=== PATIENT | male | born 1985 | race Caucasian/White ===

== ENCOUNTER → 2017-08-06 08:37 | Outpatient (CLI) | payer OTHER, MEDICAID, SELFPAY ==
[2017-08-06 09:35] LABS: Hemoglobin A1C% w Est Avg Glu 5.3 % (4.0-6.0)
[2017-08-06 10:01] LABS: Hematocrit 47.2 % (41-53); Hemoglobin 16.7 g/dL (13.5-17.5); Mean Corpuscular HGB Conc 35.4 % (30-36); Mean Corpuscular Volume 90.5 fL (80-100); Platelet Count 151 X10^3/uL (150-400); Red Blood Cell Count 5.21 X10^6/uL (4.5-5.9); Red Cell Distribution Width 12.4 % (11.6-14.8); White Blood Cell Count 5.9 X10^3/uL (4.5-11.0)
[2017-08-06 10:04] LABS: BUN Creatinine Ratio 19.1 (6-22); Blood Urea Nitrogen 21 mg/dL (9-20); Calcium 9.9 mg/dL (8.4-10.2); Carbon Dioxide 25 mmol/L (22-32); Chloride 104 mmol/L (98-107); Estimated Glomerular Filt Rate > 60.0 mL/min (>60); Glucose 90 mg/dL (70-100); HEMOLYSIS < 15 (0-50); Potassium 4.8 mmol/L (3.4-5.1); Sodium 142 mmol/L (137-145)
[2017-08-06 10:18] LABS: Vitamin D 25 Hydroxy (D3) 96.3 ng/mL (30.0-100.0)
== END ==
PROVIDERS: PCP Family Medicine; Visit Provider Registered Nurse
DX: F84.0 Autistic disorder (principal); F42.9 Obsessive-compulsive disorder, unspecified; F95.2 Tourette's disorder; R73.9 Hyperglycemia, unspecified
CPT/HCPCS: 36415; 80048; 82306; 83036; 85027

== ENCOUNTER → 2018-10-10 15:57 | Outpatient (CLI) | payer OTHER, MEDICAID, SELFPAY ==
[2018-10-10 16:20] LABS: Appearance Urine UA CLEAR; Bilirubin Urine UA NEGATIVE (NEGATIVE); Color Urine UA YELLOW; Glucose Urine UA NEGATIVE (Negative); Ketones Urine UA NEGATIVE (NEGATIVE); Leukocyte Esterase Urine UA 1+ (NEGATIVE); Nitrite Urine UA NEGATIVE (Negative); Occult Blood Urine UA TRACE-LYSED (Negative); Protein Urine UA NEGATIVE (Negative); Urobilinogen Urine UA 0.2 E.U./dL (0.2)
[2018-10-10 16:29] LABS: Bacteria Urine None Seen; RBC Urine None Seen (0-5/HPF)
[2018-10-10 16:30] LABS: Culture Indicated Urine Cult Not Indicated; WBC Urine 1-5/HPF (0-5/HPF)
== END ==
PROVIDERS: PCP Family Medicine; Visit Provider Family Medicine
DX: R31.9 Hematuria, unspecified (principal)
CPT/HCPCS: 81003; 81015

== ENCOUNTER → 2019-04-28 07:21 | Outpatient (CLI) | payer OTHER, MEDICAID, SELFPAY ==
[2019-04-28 08:12] LABS: Add Manual Diff / Slide Review NO; Basophils Absolute Auto 0 /uL (0-100); Basophils Percent Auto 0.8 % (0-2); Eosinophils Absolute Auto 100 /uL (0-450); Eosinophils Percent Auto 1.7 % (2-4); Hematocrit 43.7 % (41-53); Hemoglobin 15.6 g/dL (13.5-17.5); Lymphocytes Absolute Auto 2000 /uL (1100-4500); Lymphocytes Percent Auto 36.9 % (25-40); Mean Corpuscular HGB Conc 35.8 % (30-36); Mean Corpuscular Hemoglobin 33.4 PG (26-34); Mean Corpuscular Volume 93.3 fL (80-100); Monocytes Absolute Auto 600 /uL (0-900); Monocytes Percent Auto 10.4 % (3-14); Neutrophils Absolute Auto 2700 /uL (1500-7000); Neutrophils Percent Auto 50.2 % (50-75); Platelet Count 170 X10^3/uL (150-400); Red Blood Cell Count 4.68 X10^6/uL (4.5-5.9); Red Cell Distribution Width 12.5 % (11.6-14.8); White Blood Cell Count 5.5 X10^3/uL (4.5-11.0)
[2019-04-28 08:25] LABS: Alanine Aminotransferase 38 IU/L (<50); Albumin 4.6 g/dL (3.5-5.0); Albumin Globulin Ratio 1.5 (1.0-2.8); Alkaline Phosphatase 62 U/L (38-126); Aspartate Aminotransferase 34 IU/L (17-59); Bilirubin Total 0.7 mg/dL (0.2-1.3); Blood Urea Nitrogen 24 mg/dL (9-20); Calcium 9.8 mg/dL (8.4-10.2); Carbon Dioxide 22 mmol/L (22-32); Chloride 109 mmol/L (98-107); Estimated Glomerular Filt Rate > 60.0 mL/min (>60); Glucose 91 mg/dL (70-100); HEMOLYSIS < 15 (0-50); Potassium 4.2 mmol/L (3.4-5.1); Sodium 142 mmol/L (137-145); Total Protein 7.6 g/dL (6.3-8.2)
== END ==
PROVIDERS: PCP Family Medicine; Referring Provider Family Medicine; Visit Provider Family Medicine
DX: R63.4 Abnormal weight loss (principal)
CPT/HCPCS: 36415; 80053; 84443; 85025

== ENCOUNTER → 2019-05-11 15:27 | Outpatient (CLI) | payer OTHER, MEDICAID, SELFPAY ==
[2019-05-11 17:46] LABS: Appearance Urine UA CLEAR; Bilirubin Urine UA NEGATIVE (NEGATIVE); Color Urine UA YELLOW; Glucose Urine UA NEGATIVE (Negative); Ketones Urine UA NEGATIVE (NEGATIVE); Leukocyte Esterase Urine UA NEGATIVE (NEGATIVE); Nitrite Urine UA NEGATIVE (Negative); Occult Blood Urine UA NEGATIVE (Negative); Protein Urine UA NEGATIVE (Negative); Urobilinogen Urine UA 0.2 E.U./dL (0.2); pH Urine UA 5.5 (4.5-8.0)
== END ==
PROVIDERS: PCP Family Medicine; Referring Provider Family Medicine; Visit Provider Family Medicine
DX: R31.9 Hematuria, unspecified (principal)
CPT/HCPCS: 81003

== ENCOUNTER → 2019-06-20 12:46 | Outpatient (CLI) | payer OTHER, MEDICAID, SELFPAY ==
--- NOTE | 2019-06-20 13:06 | DI.CT.S_ITS ---
PROCEDURE: CT ABDOMEN PELVIS WO/W CON INDICATIONS: 30 LB WEIGHT LOSS HEMATURIA TECHNIQUE: Optional 5 mm thick noncontrast images acquired from the diaphragm to the symphysis pubis. After the administration of intravenous contrast, 5 mm thick images acquired from the diaphragm to the symphysis pubis after a 10-minute delay. 2 mm thick coronal and sagittal reformats were then performed of the kidneys and ureters. For radiation dose reduction, the following was used: automated exposure control, adjustment of mA and/or kV according to patient size. COMPARISON: None. FINDINGS: Image quality: Excellent. Lung bases: Respiratory motion. Lung bases are clear. Heart size is normal. Urinary system: Both kidneys are normal in size, without hydronephrosis or nephrolithiasis on pre-contrast images. No perinephric fat stranding. There is normal bilateral renal enhancement. A few cortical hypodensities in left kidney which are too small to further characterize. No solid mass. Renal calyces appear normal in morphology when filled with contrast. Opacified portions of both ureters demonstrate normal caliber. No urinary tract filling defect identified. Bladder wall thickness is normal. No calcified bladder stones. Other solid organs: Liver is normal in size. Hepatic steatosis. Gallbladder is unremarkable. Biliary system is non dilated. Pancreas enhances normally. Spleen is normal in size and enhancement. No adrenal nodules. Peritoneum and bowel: Bowel loops demonstrate normal wall thickness and caliber. No free fluid or air. Appendix is normal in caliber. Increased density in the appendix and cecum which may represent medication tablets or prior oral contrast. Nodes and vessels: No retroperitoneal or mesenteric adenopathy by size criteria. Aorta and inferior vena cava are normal in size. Abdominal wall: No ventral hernias. Pelvis: No pathologic free pelvic fluid. No inguinal hernias or adenopathy. Bones: No suspicious bony lesions. No vertebral body compression fractures. IMPRESSION: 1. No solid renal mass. 2. No upper urinary tract filling defect. No kidney stones. 3. No adenopathy. Dictated by: Héctor Hayes M.D. on 06/20/2019 at 13:22 Approved by: Héctor Hayes M.D. on 06/20/2019 at 13:30
== END ==
PROVIDERS: PCP Family Medicine; Referring Provider Family Medicine; Visit Provider Family Medicine
DX: R31.9 Hematuria, unspecified (principal); R63.4 Abnormal weight loss; K76.0 Fatty (change of) liver, not elsewhere classified
CPT/HCPCS: 74178; Q9967

== ENCOUNTER → 2020-01-17 14:33 | Outpatient (CLI) | payer OTHER, MEDICAID, SELFPAY ==
--- NOTE | 2020-01-17 | DI.CT.S_ITS ---
PROCEDURE: CT SINUS SCREEN WO CON INDICATIONS: chronic sinusitis,unspecified TECHNIQUE: Noncontrast 3.0 mm axial images acquired from the frontal sinuses to the mid-sella, with coronal and sagittal reformats. For radiation dose reduction, the following was used: automated exposure control, adjustment of mA and/or kV according to patient size. COMPARISON: None. FINDINGS: Image quality: Excellent. Maxillary Sinuses: No bony remodeling or destruction. There is a small left maxillary sinus retention cyst. Right maxillary sinus is clear.. Ethmoid Air Cells: No bony remodeling or destruction. Sinuses are clear. Sphenoid Sinuses: No bony remodeling or destruction. Sinuses are clear. Frontal Sinuses: No bony remodeling or destruction. Sinuses are clear. Ostiomeatal Complexes: Ostiomeatal complexes are patent. No Gera cells. Miscellaneous: Visualized intra-orbital contents are normal. No hema bullosa or paradoxical turbinate curvature. Mild rightward deviation of the posterior nasal septum, and mild leftward deviation of the anterior nasal septum. IMPRESSION: 1. Mild left maxillary sinus mucosal disease. 2. Mild nasal septal deviation as described above. Dictated by: Corby Hopper M.D. on 01/17/2020 at 15:17 Approved by: Corby Hpoper M.D. on 01/17/2020 at 15:18
== END ==
PROVIDERS: PCP Family Medicine; Referring Provider Registered Nurse; Visit Provider Registered Nurse
DX: J32.0 Chronic maxillary sinusitis (principal); J34.2 Deviated nasal septum
CPT/HCPCS: 70486

== ENCOUNTER → 2020-03-20 12:27 | Outpatient (CLI) | payer OTHER, MEDICAID, SELFPAY ==
[2020-03-20 13:12] LABS: Add Manual Diff / Slide Review NO; Basophils Absolute Auto 100 /uL (0-100); Basophils Percent Auto 0.9 % (0-2); Eosinophils Absolute Auto 100 /uL (0-450); Eosinophils Percent Auto 1.3 % (2-4); Hematocrit 46.6 % (41-53); Hemoglobin 16.2 g/dL (13.5-17.5); Lymphocytes Absolute Auto 1600 /uL (1100-4500); Lymphocytes Percent Auto 28.1 % (25-40); Mean Corpuscular HGB Conc 34.7 % (30-36); Mean Corpuscular Hemoglobin 33.6 PG (26-34); Monocytes Absolute Auto 700 /uL (0-900); Monocytes Percent Auto 12.4 % (3-14); Neutrophils Absolute Auto 3300 /uL (1500-7000); Neutrophils Percent Auto 57.3 % (50-75); Platelet Count 193 X10^3/uL (150-400); Red Blood Cell Count 4.81 X10^6/uL (4.5-5.9); Red Cell Distribution Width 12.6 % (11.6-14.8); White Blood Cell Count 5.8 X10^3/uL (4.5-11.0)
[2020-03-20 13:28] LABS: Alanine Aminotransferase 29 IU/L (<50); Albumin Globulin Ratio 1.7 (1.0-2.8); Alkaline Phosphatase 53 U/L (38-126); Aspartate Aminotransferase 31 IU/L (17-59); BUN Creatinine Ratio 28.4 (6-22); Bilirubin Total 0.9 mg/dL (0.2-1.3); Blood Urea Nitrogen 29 mg/dL (9-20); Calcium 10.1 mg/dL (8.4-10.2); Carbon Dioxide 25 mmol/L (22-32); Chloride 109 mmol/L (98-107); Estimated Glomerular Filt Rate > 60.0 mL/min (>60); Globulin 2.9 g/dL (1.7-4.1); Glucose 67 mg/dL (70-100); HEMOLYSIS 18 (0-50); Potassium 4.3 mmol/L (3.4-5.1); Sodium 144 mmol/L (137-145); Total Protein 7.9 g/dL (6.3-8.2)
[2020-03-20 15:11] LABS: Amylase 54 U/L (30-110); Lipase 163 U/L (23-300)
== END ==
PROVIDERS: PCP Family Medicine; Referring Provider Family Medicine; Visit Provider Family Medicine
DX: R10.11 Right upper quadrant pain (principal)
CPT/HCPCS: 36415; 80053; 82150; 83690; 85025

== ENCOUNTER → 2020-03-22 10:45 | Outpatient (CLI) | payer OTHER, MEDICAID, SELFPAY ==
--- NOTE | 2020-03-22 10:46 | DI.US.S_ITS ---
PROCEDURE: US ABDOMEN COMPLETE INDICATIONS: RIGHT UPPER QUADRANT PAIN TECHNIQUE: Real-time scanning was performed of the abdominal and retroperitoneal organs, with image documentation. COMPARISON: [facility], CT, CT ABDOMEN PELVIS WO/W CON, 06/20/2019, 12:50. FINDINGS: Liver: The liver demonstrates normal size. The liver demonstrates generalized mildly increased echogenicity. This decreases ultrasound sensitivity for detection of hepatic masses. Gallbladder: No findings of gallstones or sludge are seen. The gallbladder wall is not thickened, measuring 3 mm or less. No specific pericholecystic fluid is seen. The sonographic Braun sign is negative. Biliary ducts: Intrahepatic bile ducts are non-dilated. Extrahepatic bile duct caliber measures 3 mm. Normal is 6-7 mm or less in diameter, or 10 mm or less post-cholecystectomy. Pancreas: Visualized portions of the pancreas are sonographically normal. Spleen: Spleen is normal in size and homogeneous in echotexture. Kidneys: Kidneys are normal in size and echotexture. Right kidney measures 9.6 cm long; left kidney measures 10.9 cm long. No hydronephrosis or nephrolithiasis. No solid masses. Aorta: Visualized aorta is normal in caliber at less than 3 cm. Iliacs: Proximal common iliac arteries are normal in caliber at less than 2.5 cm. IVC: Intrahepatic inferior vena cava is patent. Miscellaneous: No free abdominal fluid. IMPRESSION: The gallbladder demonstrates a normal sonographic appearance. No biliary dilatation is seen. The liver demonstrates increased echogenicity. This finding is nonspecific, yet it is most commonly attributed to fatty infiltration. Dictated by: Valeriano Farooq M.D. on 03/22/2020 at 11:14 Approved by: Valeriano Farooq M.D. on 03/22/2020 at 11:15
== END ==
PROVIDERS: PCP Family Medicine; Referring Provider Family Medicine; Visit Provider Family Medicine
DX: R10.11 Right upper quadrant pain (principal)
CPT/HCPCS: 76700

== ENCOUNTER 2020-06-28 10:44 | Observation (INO) | payer OTHER, MEDICAID, SELFPAY ==
[2020-06-28] VITALS (16 sets, daily range): BP systolic 93–142; BP diastolic 57–88; PULSE 62–102; RESP 18–23; TEMP 36.4–37.3; O2SAT 93–100; BMI 24.3
--- NOTE | 2020-06-28 11:37 | DI.RAD.S_ITS ---
PROCEDURE: XR ACUTE ABDOMEN SERIES INDICATIONS: abd pain TECHNIQUE: One view chest and two views of the abdomen were acquired. COMPARISON: None. FINDINGS: Surgical changes and devices: None. Chest: Lungs are clear. Heart size is normal. No pleural effusions. No pneumoperitoneum. Abdomen: Bowel gas pattern is nonobstructive. No suspicious calcifications. Visualized solid organ contours appear normal. Bones: No suspicious bony lesions. IMPRESSION: Chest and abdomen without acute radiographic abnormalities. Dictated by: Anthony Haider M.D. on 06/28/2020 at 11:00 Approved by: Anthony Haider M.D. on 06/28/2020 at 11:01
[2020-06-28 11:47] LABS: Alanine Aminotransferase 25 IU/L (<50); Albumin 4.8 g/dL (3.5-5.0); Albumin Globulin Ratio 1.5 (1.0-2.8); Alkaline Phosphatase 60 U/L (38-126); Aspartate Aminotransferase 30 IU/L (17-59); BUN Creatinine Ratio 24.2 (6-22); Bilirubin Total 1.8 mg/dL (0.2-1.3); Blood Urea Nitrogen 22 mg/dL (9-20); Calcium 9.9 mg/dL (8.4-10.2); Carbon Dioxide 26 mmol/L (22-32); Chloride 104 mmol/L (98-107); Estimated Glomerular Filt Rate > 60.0 mL/min (>60); Globulin 3.2 g/dL (1.7-4.1); Glucose 110 mg/dL (70-100); HEMOLYSIS 17 (0-50); Lipase 82 U/L (23-300); Potassium 4.4 mmol/L (3.4-5.1); Sodium 138 mmol/L (137-145)
[2020-06-28 11:48] LABS: INR 1.2 (0.9-1.3); PTT Partial Thromboplastin Tim 29 SECONDS (26.4-36.2); Prothrombin Time 13.7 SECONDS (10.1-12.7)
[2020-06-28 11:51] LABS: Add Manual Diff / Slide Review NO; Basophils Absolute Auto 100 /uL (0-100); Basophils Percent Auto 0.4 % (0-2); Eosinophils Absolute Auto 0 /uL (0-450); Hemoglobin 16.5 g/dL (13.5-17.5); Lymphocytes Absolute Auto 900 /uL (1100-4500); Lymphocytes Percent Auto 4.4 % (25-40); Mean Corpuscular HGB Conc 35.1 % (30-36); Mean Corpuscular Hemoglobin 33.8 PG (26-34); Mean Corpuscular Volume 96.3 fL (80-100); Monocytes Absolute Auto 900 /uL (0-900); Monocytes Percent Auto 4.5 % (3-14); Neutrophils Absolute Auto 19300 /uL (1500-7000); Neutrophils Percent Auto 90.7 % (50-75); Platelet Count 198 X10^3/uL (150-400); Red Blood Cell Count 4.88 X10^6/uL (4.5-5.9); Red Cell Distribution Width 12.4 % (11.6-14.8); White Blood Cell Count 21.2 X10^3/uL (4.5-11.0)
--- NOTE | 2020-06-28 13:55 | ED.ABDPAIN ---
HPI - Abdominal Pain General Chief Complaint: Abdominal Pain Stated Complaint: mid abd pain x2 days Time Seen by Provider: 06/28/20 11:38 Source: patient and family Mode of arrival: Ambulatory Limitations: language barrier (patient has minimal ability to express himself.) History of Present Illness HPI narrative: 34-year-old male comes with complaint of abdominal pain, in the setting of autism spectrum disorder with decreased ability to express himself verbally. Mom states that she noted yesterday she to the found him outside on the ground complaining of pain. She states he does not normally complain of pain and he has even ruptured both eardrums in the past secondary to ear infections and never complained. She states the only changes that he has been acting out. He has not any fevers or diaphoresis. He has been eating regularly. No nausea or vomiting that they are aware. He had some diarrhea yesterday but no black or bloody stools. No urinary symptoms. Patient denies any back or flank pain. Patient indicates that he has pain at the mid abdominal region. Patient takes some supplements but does not take any daily medications. He has had bilateral ear tubes as a child as well as tonsillectomy with no other additional surgeries. He is allergic to sulfa. Patient is agreeable to pain medication when asked directly. He is accompanied by his mother. Related Data Home Medications Medication Instructions Recorded Confirmed No Known Home Medications 06/28/20 06/28/20 Allergies Allergy/AdvReac Type Severity Reaction Status Date / Time Sulfa (Sulfonamide Allergy Hives Verified 06/28/20 11:23 Antibiotics) SULFA Allergy Mild FAMILY Uncoded 06/28/20 11:23 HISTORY Review of Systems Review of Systems ROS Unobtainable: All systems reviewed & are unremarkable except as noted in HPI and below Patient History Social History household members: other Smoking Status: Never smoker alcohol intake: never Smoking Status: Never smoker Exam Narrative Exam Narrative: GENERAL: Alert and oriented x three, well-nourished male in mild distress. Patient answers some questions but not all. HEENT: Head normocephalic, atraumatic, EOMI, pupils reactive, face symmetric, moist mucous membranes NECK: Supple, full range of motion CARDIOVASCULAR: Regular rate and rhythm without murmurs, rubs or gallops. RESPIRATORY: Breath sounds equal bilaterally, no wheezes rales or rhonchi. ABDOMEN: Soft, patient has generalized abdominal tenderness unable to appreciate any localization. Normoactive bowel sounds all 4 quadrants. Positive for guarding. No rebound, rigidity, no mass. No hernia appreciated. : No CVA tenderness EXTREMITIES: Normal range of motion, no clubbing or edema. Neurovascularly intact NEUROLOGICAL: Cranial nerves II through XII grossly intact. Moving all extremities SKIN: Warm, dry, no petechiae, no rashes or lesions. Initial Vital Signs Initial Vital Signs: Vital Signs Temperature 97.6 F 06/28/20 11:19 Pulse Rate 77 06/28/20 11:19 Respiratory Rate 18 06/28/20 11:19 Blood Pressure 112/58 L 06/28/20 11:19 Pulse Oximetry 100 06/28/20 11:19 Course Orders Ordered: ED Orders 06/28/20 11:15 Complete Blood Count AUTO DIFF Stat Comprehensive Metabolic Panel Stat Lactate (Lactic Acid) Stat Lipase Stat Partial Thromboplastin Time Stat Procalcitonin Stat Prothrombin Time INR Stat 06/28/20 11:37 XR acute abdomen series Stat 06/28/20 14:10 Urinalysis and Microscopic Stat 06/28/20 14:27 Blood Culture Stat 06/28/20 14:30 CT abdomen pelvis w con Stat Lactated Ringer's (Lactated Ringers) 1,000 mls @ 150 mls/hr IV CONT MARY Last Admin: 06/28/20 17:03 Dose: 150 mls/hr Documented by: DEMI Morphine Sulfate (Morphine 4 Mg/Ml Inj) 4 mg IV Q2H PRN PRN Reason: Pain, Moderate (4-6) Discontinued Medications Sodium Chloride (Normal Saline 0.9%) 1,000 mls @ 1,000 mls/hr IV BOLUS ONE Stop: 06/28/20 15:15 Last Infusion: 06/28/20 15:30 Dose: 0 mls/hr Documented by: Admin: 06/28/20 14:24 Dose: 1,000 mls/hr Documented by: TARA Piperacillin Sod/Tazobactam (Sod 4.5 gm/ Sodium Chloride) 100 mls @ 200 mls/hr IV NOW ONE Stop: 06/28/20 15:33 Last Infusion: 06/28/20 16:22 Dose: 0 mls/hr Documented by: Admin: 06/28/20 15:39 Dose: 200 mls/hr Documented by: MABEL Ketorolac Tromethamine (Ketorolac 60 Mg/2 Ml Vial) 30 mg IV NOW ONE Stop: 06/28/20 14:17 Last Admin: 06/28/20 14:23 Dose: 30 mg Documented by: TARA Morphine Sulfate (Morphine 4 Mg/Ml Inj) 4 mg IV Q4HR PRN PRN Reason: Pain, Moderate (4-6) Last Admin: 06/28/20 17:03 Dose: 4 mg Documented by: DEMI Morphine Sulfate (Morphine 4 Mg/Ml Inj) 4 mg IV NOW ONE Stop: 06/28/20 19:19 Reevaluation(s) Reevaluation #1: Updated mother and patient of findings today. Positive for appendicitis. Patient last intake was at 10am today. She states patient feels much more comfortable at this time and patient also indicates the same. Discussed plan for surgical repair, patient being started on IV antibiotics at this time as well as continued fluids. Time: 15:46 Consultations Consultation #1: Dr. Arroyo accepts for observation for appendicitis. Time: 15:46 Vital Signs Vital signs: Vital Signs - 8 hr 06/28/20 12:18 06/28/20 12:30 06/28/20 13:00 Pulse Rate 86 78 85 Respiratory Rate 22 20 20 Blood Pressure Pulse Oximetry 97 96 95 06/28/20 13:30 06/28/20 14:00 06/28/20 14:30 Pulse Rate 81 102 H 96 H Respiratory Rate 19 18 23 Blood Pressure Pulse Oximetry 94 96 96 06/28/20 14:55 06/28/20 15:00 06/28/20 15:30 Pulse Rate 90 90 83 Respiratory Rate 20 18 18 Blood Pressure 98/59 L 100/57 L 93/58 L Pulse Oximetry 100 99 97 MDM - Abdominal Pain Lab Data Attestation: I reviewed the patient's lab results. Result diagrams: 06/28/20 11:15 06/28/20 11:15 Labs: Lab Results 06/28/20 06/28/20 06/28/20 Range/Units 11:15 11:15 11:15 WBC 21.2 H (4.5-11.0) X10^3/uL RBC 4.88 (4.5-5.9) X10^6/uL Hgb 16.5 (13.5-17.5) g/dL Hct 47.0 (41-53) % MCV 96.3 (80-100) fL MCH 33.8 (26-34) PG MCHC 35.1 (30-36) % RDW 12.4 (11.6-14.8) % Plt Count 198 (150-400) X10^3/uL Neut % (Auto) 90.7 H (50-75) % Lymph % (Auto) 4.4 L (25-40) % Upson % (Auto) 4.5 (3-14) % Eos % (Auto) 0.0 L (2-4) % Baso % (Auto) 0.4 (0-2) % Neut # (Auto) 21364 H (0897-0485) /uL Lymph # (Auto) 900 L (3670-8450) /uL Upson # (Auto) 900 (0-900) /uL Eos # (Auto) 0 (0-450) /uL Baso # (Auto) 100 (0-100) /uL PT 13.7 H (10.1-12.7) SECONDS INR 1.2 (0.9-1.3) APTT 29 (26.4-36.2) SECONDS Sodium 138 (137-145) mmol/L Potassium 4.4 (3.4-5.1) mmol/L Chloride 104 (98-107) mmol/L Carbon Dioxide 26 (22-32) mmol/L BUN 22 H (9-20) mg/dL Creatinine 0.91 (0.66-1.25) mg/dL Estimated GFR > 60.0 (>60) mL/min BUN/Creatinine Ratio 24.2 H (6-22) Glucose 110 H (70-100) mg/dL Lactate (0.7-2.1) mmol/L Calcium 9.9 (8.4-10.2) mg/dL Total Bilirubin 1.8 H (0.2-1.3) mg/dL AST 30 (17-59) IU/L ALT 25 (<50) IU/L Alkaline Phosphatase 60 (38-126) U/L Total Protein 8.0 (6.3-8.2) g/dL Albumin 4.8 (3.5-5.0) g/dL Globulin 3.2 (1.7-4.1) g/dL Albumin/Globulin Ratio 1.5 (1.0-2.8) Lipase 82 (23-300) U/L Procalcitonin (<0.5) ng/mL Urine Color Urine Appearance Urine pH (4.5-8.0) Ur Specific Granby (1.000-1.035) Urine Protein (Negative) Urine Glucose (UA) (Negative) g/dL Urine Ketones (NEGATIVE) Urine Occult Blood (Negative) Urine Nitrate (Negative) Urine Bilirubin (NEGATIVE) Urine Urobilinogen (0.2) E.U./dL Ur Leukocyte Esterase (NEGATIVE) Urine RBC (0-5/HPF) Urine WBC (0-5/HPF) Amorphous Sediment Urine Bacteria (None) Ur Culture Indicated? 06/28/20 06/28/20 06/28/20 Range/Units 11:15 11:15 14:10 WBC (4.5-11.0) X10^3/uL RBC (4.5-5.9) X10^6/uL Hgb (13.5-17.5) g/dL Hct (41-53) % MCV (80-100) fL MCH (26-34) PG MCHC (30-36) % RDW (11.6-14.8) % Plt Count (150-400) X10^3/uL Neut % (Auto) (50-75) % Lymph % (Auto) (25-40) % Upson % (Auto) (3-14) % Eos % (Auto) (2-4) % Baso % (Auto) (0-2) % Neut # (Auto) (5401-7346) /uL Lymph # (Auto) (7980-8266) /uL Upson # (Auto) (0-900) /uL Eos # (Auto) (0-450) /uL Baso # (Auto) (0-100) /uL PT (10.1-12.7) SECONDS INR (0.9-1.3) APTT (26.4-36.2) SECONDS Sodium (137-145) mmol/L Potassium (3.4-5.1) mmol/L Chloride (98-107) mmol/L Carbon Dioxide (22-32) mmol/L BUN (9-20) mg/dL Creatinine (0.66-1.25) mg/dL Estimated GFR (>60) mL/min BUN/Creatinine Ratio (6-22) Glucose (70-100) mg/dL Lactate 1.2 (0.7-2.1) mmol/L Calcium (8.4-10.2) mg/dL Total Bilirubin (0.2-1.3) mg/dL AST (17-59) IU/L ALT (<50) IU/L Alkaline Phosphatase (38-126) U/L Total Protein (6.3-8.2) g/dL Albumin (3.5-5.0) g/dL Globulin (1.7-4.1) g/dL Albumin/Globulin Ratio (1.0-2.8) Lipase (23-300) U/L Procalcitonin 0.14 (<0.5) ng/mL Urine Color Yellow Urine Appearance Cloudy Urine pH 5.0 (4.5-8.0) Ur Specific Granby >=1.030 H (1.000-1.035) Urine Protein Trace H (Negative) Urine Glucose (UA) Negative (Negative) g/dL Urine Ketones Trace H (NEGATIVE) Urine Occult Blood Trace-lysed (Negative) Urine Nitrate Negative (Negative) Urine Bilirubin Negative (NEGATIVE) Urine Urobilinogen 0.2 (0.2) E.U./dL Ur Leukocyte Esterase Negative (NEGATIVE) Urine RBC None seen (0-5/HPF) Urine WBC None seen (0-5/HPF) Amorphous Sediment 2+ Urine Bacteria None seen (None) Ur Culture Indicated? Cult not indicated Imaging Data Abdominal x-ray: Radiologist's Impression: ErnestoEleuterio 34 M [address] [id number] ReportSigned Patient: Eleuterio Orozco [facility]#: [id number]: 1985Acct:[id number]/Sex: 34 / MDate of Service: 06/28/20Loc: EDAccession Number: [id number] Procedure: XR acute abdomen series Ordering Provider: Jolie Jimenes D.O. PROCEDURE: XR ACUTE ABDOMEN SERIES INDICATIONS: abd pain TECHNIQUE: One view chest and two views of the abdomen were acquired. COMPARISON: None. FINDINGS: Surgical changes and devices: None. Chest: Lungs are clear. Heart size is normal. No pleural effusions. No pneumoperitoneum. Abdomen: Bowel gas pattern is nonobstructive. No suspicious calcifications. Visualized solid organ contours appear normal. Bones: No suspicious bony lesions. IMPRESSION: Chest and abdomen without acute radiographic abnormalities. Dictated by: Anthony Haider M.D. on 06/28/2020 at 11:00 Approved by: Anthony Haider M.D. on 06/28/2020 at 11:01 [facility] Narrative Medical decision making narrative: This is a 34-year-old male with 2 days of abdominal pain who is quite stoic and somewhat nonverbal with known autism. Patient has a leukocytosis of 21 on labs and has generalized abdominal pain with no obvious localization on exam but patient is really quite stoic on evaluation. Patient had CT imaging ordered is he has some difficulty with verbalizing his pain and symptoms and shows appendicitis. An IV antibiotics were started. Lactate and procalcitonin are negative and patient does not appear to be septic at this time. Patient has been NPO since about 10:00 a.m. spoke with General surgery, Dr. Arroyo accepts with plan for OR. Discharge Plan Departure Patient Disposition: Admitted as Observation Clinical Impression: Acute appendicitis Admit Date/Time: 06/28/20 15:53 Admit Provider: Oswaldo Arroyo
[2020-06-28 14:12] LABS: Lactate (Lactic Acid) 1.2 mmol/L (0.7-2.1)
[2020-06-28 14:20] LABS: Bacteria Urine None Seen; RBC Urine None Seen (0-5/HPF); WBC Urine None Seen (0-5/HPF)
[2020-06-28 14:21] LABS: Appearance Urine UA CLOUDY; Bilirubin Urine UA NEGATIVE (NEGATIVE); Color Urine UA YELLOW; Glucose Urine UA NEGATIVE (Negative); Ketones Urine UA TRACE (NEGATIVE); Leukocyte Esterase Urine UA NEGATIVE (NEGATIVE); Nitrite Urine UA NEGATIVE (Negative); Occult Blood Urine UA TRACE-LYSED (Negative); Protein Urine UA TRACE (Negative); Specific Gravity Urine UA >=1.030 (1.000-1.035); Urobilinogen Urine UA 0.2 E.U./dL (0.2)
[2020-06-28 14:23] LABS: Amorphous Sediment Urine 2+; Culture Indicated Urine Cult Not Indicated
[2020-06-28] MEDS: KETOROLAC 60 MG/2 ML VIAL 30 MG IV (14:23)
[2020-06-28] MEDS: SODIUM CHLORIDE 0.9% 1,000 ML 1000 ML IV (14:24)
[2020-06-28 14:29] LABS: Procalcitonin 0.14 ng/mL (<0.5)
--- NOTE | 2020-06-28 14:30 | DI.CT.S_ITS ---
PROCEDURE: CT ABDOMEN PELVIS W CON INDICATIONS: abdominal pain, wbc 21. TECHNIQUE: After the administration of intravenous contrast, 5 mm thick sections acquired from the diaphragm to the symphysis. 5 mm coronal and sagittal reformats were acquired. For radiation dose reduction, the following was used: automated exposure control, adjustment of mA and/or kV according to patient size. COMPARISON: [facility], CT, CT ABDOMEN PELVIS WO/W CON, 06/20/2019, 12:50. [facility], CT, CT SINUS SCREEN WO CON, 01/17/2020, 14:45. FINDINGS: Lower thorax: The lung bases are clear. Heart size normal. No hiatal hernia. Liver : The liver is diffusely decreased in attenuation without focal mass lesion. Biliary system: <<No calcified cholelithiasis or pericholecystic inflammation. 3:37 p.m. No intra or extrahepatic bile duct dilatation. Pancreas: Unremarkable without mass or inflammation evident. Spleen: Normal in size and density. Adrenals: Normal morphology and density. Reproductive system: Unremarkable as visualized. Urinary system: Normal renal size and attenuation. No renal calculi, hydronephrosis, or solid mass present. Urinary bladder unremarkable. Gastrointestinal system: As below. The bowel otherwise appears unremarkable with no evidence of bowel obstruction or inflammation. The stomach appears unremarkable. Appendix: In the right lower quadrant, the appendix is inflamed and dilated measuring up to 1.2 cm in diameter. There is a 5 mm calculus noted at the bases well as increased density within the cecum similar prior exams may reflect prior oral contrast . Additionally, there is a 2.4 x 1.5 cm mixed density focus around the tip of the appendix which may reflect the developing immature abscess. [id number] unencapsulated free fluid noted in the pelvis. No free air. Peritoneal spaces: No intra- or retroperitoneal adenopathy. Vasculature: The IVC, aorta and iliac vasculature are unremarkable. Musculoskeletal: Normal bone mineralization. No acute fractures. Small right inguinal hernia contains fat without bowel involvement, new from prior exam. IMPRESSION: 1. Acute appendicitis with 5 mm appendicolith. Heterogenous 2.5 cm density associated with the tip of the appendix may reflect developing immature abscesses. No evidence of current drainable abscess or free air. 2. [id number] un- capsulated free-fluid in the pelvis is reactive appearing 3. Small right inguinal hernia contains fat without bowel moment, new from the prior. Critical results were discussed with Dr Jimenes on 06/28/2020 at 3:37 p.m. Dictated by: Tushar Martin M.D. on 06/28/2020 at 15:11 Approved by: Tushar Martin M.D. on 06/28/2020 at 15:37
[2020-06-28] MEDS: PIPERACILLIN/TAZO 4.5 GM in SODIUM CHLORIDE 0.9% 100 ML 200 ML IV (15:39)
[2020-06-28] MEDS: LACTATED RINGERS 1,000 ML 150 ML IV (17:03)
[2020-06-28] MEDS: MORPHINE 4 MG/ML INJ IV ×2 (17:03→19:22)
[2020-06-28 17:04] LABS: COVID19 - ADMIT (NP swab/PCR) Negative (Negative)
--- NOTE | 2020-06-28 17:47 | P.HP_ITS ---
History of Present Illness History of Present Illness Date Patient Seen: 06/28/20 Time Patient Seen: 17:47 Chief complaint: mid abd pain x2 days Narrative: The patient is a gentleman who is autistic. He apparently developed pain in his abdomen that he began complaining about yesterday. Pain is mostly in the epigastric area according to the patient and his mom. He has never had pain like this before. No nausea or vomiting. Patient History Family & Social History Social History: household members other Prior Living Arrangements House Safety & Behavioral: Feels Safe in Current Unwilling to Answer Environment Been Physically Hurt or Unwilling to Answer Threatened By a Person Tobacco & Substance use: Smoking Status Never smoker alcohol intake never Substance Use Type does not use Meds Home Medications and Allergies Home Medications Medication Instructions Recorded Confirmed Type No Known Home Medications 06/28/20 06/28/20 History Allergies Allergy/AdvReac Type Severity Reaction Status Date / Time Sulfa (Sulfonamide Allergy Hives Verified 06/28/20 11:23 Antibiotics) SULFA Allergy Mild FAMILY Uncoded 06/28/20 11:23 HISTORY Review of Systems Review of Systems Narrative: Patient and mother deny any problems with breathing asthma heart problems chest pain. No prior abdominal complaints. No trouble urinating. No seizures or blackouts. Exam Vital Signs (past 8 hours): - 06/28/20 11:19 06/28/20 12:18 06/28/20 12:30 Temperature 97.6 F Pulse Rate 77 86 78 Respiratory Rate 18 22 20 Blood Pressure 112/58 L Pulse Oximetry 100 97 96 06/28/20 13:00 06/28/20 13:30 06/28/20 14:00 Temperature Pulse Rate 85 81 102 H Respiratory Rate 20 19 18 Blood Pressure Pulse Oximetry 95 94 96 06/28/20 14:30 06/28/20 14:55 06/28/20 15:00 Temperature Pulse Rate 96 H 90 90 Respiratory Rate 23 20 18 Blood Pressure 98/59 L 100/57 L Pulse Oximetry 96 100 99 06/28/20 15:30 06/28/20 16:00 06/28/20 16:40 Temperature 97.7 F Pulse Rate 83 90 90 Respiratory Rate 18 18 19 Blood Pressure 93/58 L 99/61 110/71 Pulse Oximetry 97 97 97 Oxygen Delivery Method Room Air Oxygen Flow Rate 0 Narrative Exam Narrative: Patient very pleasant 9 follows commands no apparent distress not very verbal. His eyes are nonicteric. There are no nodes in the neck or supraclavicular areas. Lungs are clear to auscultation without rales or rhonchi. Heart regular rate and rhythm without murmur gallop no. No heave lift or thrill. His abdomen is scaphoid soft. His mild tenderness throughout the abdomen. He points mostly to his epigastrium upper abdomen in the midline regarding location of the most pain he is tender over the right lower quadrant. He is alert. Objective Labs Result Diagrams: 06/28/20 11:15 06/28/20 11:15 Labs: Laboratory Results - last 24 hr 06/28/20 06/28/20 06/28/20 11:15 11:15 11:15 WBC 21.2 H RBC 4.88 Hgb 16.5 Hct 47.0 MCV 96.3 MCH 33.8 MCHC 35.1 RDW 12.4 Plt Count 198 Neut % (Auto) 90.7 H Lymph % (Auto) 4.4 L [place] % (Auto) 4.5 Eos % (Auto) 0.0 L Baso % (Auto) 0.4 Neut # (Auto) 51580 H Lymph # (Auto) 900 L [place] # (Auto) 900 Eos # (Auto) 0 Baso # (Auto) 100 PT 13.7 H INR 1.2 APTT 29 Sodium 138 Potassium 4.4 Chloride 104 Carbon Dioxide 26 BUN 22 H Creatinine 0.91 Estimated GFR > 60.0 BUN/Creatinine Ratio 24.2 H Glucose 110 H Lactate Calcium 9.9 Total Bilirubin 1.8 H AST 30 ALT 25 Alkaline Phosphatase 60 Total Protein 8.0 Albumin 4.8 Globulin 3.2 Albumin/Globulin Ratio 1.5 Lipase 82 Procalcitonin Urine Color Urine Appearance Urine pH Ur Specific [place] Urine Protein Urine Glucose (UA) Urine Ketones Urine Occult Blood Urine Nitrate Urine Bilirubin Urine Urobilinogen Ur Leukocyte Esterase Urine RBC Urine WBC Amorphous Sediment Urine Bacteria Ur Culture Indicated? SARS-CoV-2 (PCR) 06/28/20 06/28/20 06/28/20 11:15 11:15 14:10 WBC RBC Hgb Hct MCV MCH MCHC RDW Plt Count Neut % (Auto) Lymph % (Auto) [place] % (Auto) Eos % (Auto) Baso % (Auto) Neut # (Auto) Lymph # (Auto) [place] # (Auto) Eos # (Auto) Baso # (Auto) PT INR APTT Sodium Potassium Chloride Carbon Dioxide BUN Creatinine Estimated GFR BUN/Creatinine Ratio Glucose Lactate 1.2 Calcium Total Bilirubin AST ALT Alkaline Phosphatase Total Protein Albumin Globulin Albumin/Globulin Ratio Lipase Procalcitonin 0.14 Urine Color Yellow Urine Appearance Cloudy Urine pH 5.0 Ur Specific [place] >=1.030 H Urine Protein Trace H Urine Glucose (UA) Negative Urine Ketones Trace H Urine Occult Blood Trace-lysed Urine Nitrate Negative Urine Bilirubin Negative Urine Urobilinogen 0.2 Ur Leukocyte Esterase Negative Urine RBC None seen Urine WBC None seen Amorphous Sediment 2+ Urine Bacteria None seen Ur Culture Indicated? Cult not indicated SARS-CoV-2 (PCR) 06/28/20 15:55 WBC RBC Hgb Hct MCV MCH MCHC RDW Plt Count Neut % (Auto) Lymph % (Auto) [place] % (Auto) Eos % (Auto) Baso % (Auto) Neut # (Auto) Lymph # (Auto) [place] # (Auto) Eos # (Auto) Baso # (Auto) PT INR APTT Sodium Potassium Chloride Carbon Dioxide BUN Creatinine Estimated GFR BUN/Creatinine Ratio Glucose Lactate Calcium Total Bilirubin AST ALT Alkaline Phosphatase Total Protein Albumin Globulin Albumin/Globulin Ratio Lipase Procalcitonin Urine Color Urine Appearance Urine pH Ur Specific [place] Urine Protein Urine Glucose (UA) Urine Ketones Urine Occult Blood Urine Nitrate Urine Bilirubin Urine Urobilinogen Ur Leukocyte Esterase Urine RBC Urine WBC Amorphous Sediment Urine Bacteria Ur Culture Indicated? SARS-CoV-2 (PCR) Negative Assessment & Plan Assessment and plan (1) Autism: Problem details: CT scan of the abdomen consistent with acute appendicitis. I do not think he has perforated though it is difficult to tell. Apparently is a bit stoic. I di scussed the operation with the patient and his mother. Risks of bleeding infection intestinal leakage in need to do additional procedures was all discussed with them. Mother is anxious to proceed. She provides consent. Status: Acute
--- NOTE | 2020-06-28 17:52 | PM.PREOP ---
Pre-operative Note COVID-19 COVID-19 status: Negative Result date/Date tested (Pos, Neg/Pending): 06/28/20 Interval Note History & Physical reviewed/Exam performed by Physician: Yes Changes to H&P: No
[2020-06-28] MEDS: LACTATED RINGERS 1,000 ML 42 ML IV (22:20)
[2020-06-28] MEDS: PIPERACILLIN-TAZO 3.375 GM/50 ML FROZ.PIGGY IV (23:30)
[2020-06-29] VITALS (14 sets, daily range): BP systolic 94–142; BP diastolic 48–88; PULSE 57–103; RESP 11–20; TEMP 36.5–37.4; O2SAT 92–97
--- NOTE | 2020-06-29 | PATH_ITS ---
[facility] Accession Number: [id number] . 01 Material submitted: . appendix - APPENDIX . 02 Diagnosis: Appendix, Appendectomy: Acute suppurative appendicitis with microscopic perforation and serositis. Negative for dysplasia and malignancy. MRV 07/04/2020 1443 Local . 02 Electronically signed: . Margarita Mcdowell MD, Pathologist NPI- [id number] . 01 Gross description: . The specimen is received in formalin, labeled appendix and consists of a 5.0 cm in length by 1.5 cm in diameter vermiform appendix with attached ho-yellow lobulated mesoappendix measuring 5.0 x 2.0 x 1.5 cm. There is a 5.0 x 5.0 x 2.0 cm portion of attached ho-yellow lobulated adipose tissue at the tip. The serosa is ho-pink and smooth with fibrinous adhesions and purulent exudate. Sectioning reveals a ho mucosa and a lumen measuring 0.7 cm in diameter. There is a perforation site within the tip. [employer] sections are submitted to include the en face margin (blue), central cross-sections and trisected tip in cassettes A1-A3. ([id number]) /MRV 07/02/2020 1056 Local . 02 Pathologist provided ICD-10: K35.20 . 02 CPT . 866587 Performed at: 01 [facility] [address], [place], [place] [id number] MD Shmuel Jose MD Phone: [phone] Performed at: 02 [facility] [address] [place], [place] [id number] MD Margarita Mcdowell MD Phone: [phone]
--- NOTE | 2020-06-29 00:05 | SUR.OPER ---
Supine on padded OR bed, head on pillow, right arm secured on padded arm boards at <90 degrees abduction, left arm is tucked,legs uncrossed, safety belt at thigh, tape over blanket over lower legs.
[2020-06-29] MEDS: BUPIVACAINE 0.5% (PF) VIAL 30 ML INJ (00:16)
--- NOTE | 2020-06-29 00:45 | PM.OP.1 ---
Operative Date/Time/Diagnoses Date of procedure: 06/29/20 Pre-op diagnosis: Acute appendicitis Post-op diagnosis: other (Perforated appendicitis) Procedure & Clinicians Procedure: Laparoscopic appendectomy Same procedure as scheduled: Yes Indications: Abdominal pain abnormal CT scan elevated white blood cell count Surgeon: Oswaldo Arroyo Click Yes if Unassisted: Yes Anesthesia Type: General Operative Notes Findings: Tip of the appendix was encased with densely adherent omentum. The appendix was removed with the omentum intact. There was purulence fluid in the pelvis which was cultured. This is a presumptive perforated appendix. Closure Type: primary Specimen(s): other (Appendix and adherent omentum) Prosthetic devices, grafts, tissues, transplants, or devices: None Estimated Blood Loss (mL): 5 Blood products transfused: none Procedure in detail: Patient is placed supine on the operating room table and underwent general endotracheal anesthesia. Harkins catheter was placed. He was prepped and draped in the usual fashion. Local anesthetic was infiltrated beneath the umbilicus in a linear incision made in the skin and carried down level the fascia the fascia was opened under direct vision as was the peritoneal cavity. Stay sutures of 0 Vicryl placed in the fascia. A 12 mm port was inserted. Two additional ports were placed 1 in the tissues between the umbilicus and pubis and 1 in left lower quadrant. Cecum was actually high in this patient. Is well above the umbilicus level. The appendix was readily identified with a very normal distal 2/3 of the appendix. The tip was encased in omentum. As it was rather adherent I decided to just divide the omental attachments with the LigaSure device. The omentum was left attached therefore to the tip. I then came across the mesoappendix with the LigaSure and placed a 0 PDS loop at the base of the appendix where it joined the cecum. A clamp was placed distal to this and the LigaSure used to divide the appendix between the clamp on the tie. It was placed in a bag without spillage and removed without difficulty. I cultured fluid that appeared purulence in the pelvis. This was then suctioned free and the right lower quadrant appendiceal area and the pelvis were copiously irrigated with saline and suctioned free. There did not appear to be any residual fluid. The ports were all removed. The stay sutures at the umbilicus were tied after placing a 2 0 PDS between them. This closed the fascia nicely. The wounds were irrigated and 4-0 Vicryl subcuticular stitches were used to close the skin. The patient was extubated and taken recovery room good condition. Complications: none Post-operative Condition: stable Disposition: PACU Plan for aftercare: Will treat as a perforated appendicitis.
--- NOTE | 2020-06-29 00:54 | SUR.PHASEI ---
Patient to PACU with anesthesia and OR nurse in stable condition. VSS. Lungs CTA; surgical dressings clean, dry and intact.
[2020-06-29] MEDS: LACTATED RINGERS 1,000 ML 125 ML IV (03:29)
[2020-06-29] MEDS: PIPERACILLIN-TAZO 3.375 GM/50 ML FROZ.PIGGY IV ×4 (05:58→23:33)
[2020-06-29 06:03] LABS: Add Manual Diff / Slide Review NO; Basophils Absolute Auto 0 /uL (0-100); Basophils Percent Auto 0.1 % (0-2); Eosinophils Absolute Auto 0 /uL (0-450); Hematocrit 39.3 % (41-53); Hemoglobin 13.5 g/dL (13.5-17.5); Lymphocytes Absolute Auto 400 /uL (1100-4500); Mean Corpuscular HGB Conc 34.4 % (30-36); Mean Corpuscular Hemoglobin 33.4 PG (26-34); Monocytes Absolute Auto 200 /uL (0-900); Monocytes Percent Auto 1.8 % (3-14); Neutrophils Absolute Auto 10500 /uL (1500-7000); Neutrophils Percent Auto 94.1 % (50-75); Platelet Count 135 X10^3/uL (150-400); Red Blood Cell Count 4.05 X10^6/uL (4.5-5.9); Red Cell Distribution Width 12.6 % (11.6-14.8); White Blood Cell Count 11.2 X10^3/uL (4.5-11.0)
[2020-06-29] MEDS: KETOROLAC 30 MG/ML VIAL IV ×3 (06:45→23:32)
[2020-06-29] MEDS: SENNOSIDES 8.6 MG TABLET 17.2 MG PO (09:00)
[2020-06-29] MEDS: GABAPENTIN 300 MG CAPSULE PO ×2 (09:00→20:47)
[2020-06-29] MEDS: ENOXAPARIN 40 MG/0.4 ML SYRINGE SUBCUT (09:01)
--- NOTE | 2020-06-29 09:01 | CM.DANOTE ---
DCP: Case received, EMR reviewed and met with patient. Mother, Olivia, was at patient's bedside. Introduced self and role. Was able to obtain information from patient and mother regarding patient's baseline activity status at home prior to hospitalization. DCP assessment completed with information currently available. Patient is a 34 year old male who admitted yesterday afternoon to the care of the hospitalist/surgical team. PCP: Dr. Bolaños. Payer: confirmed: [facility]. Patient came to the hospital via private vehicle secondary to having severe abdominal pain. Patient was diagnosed with appendicitis. He had surgery early this am for perforated appendicitis. Patient has history of autism, and has some language barrier. Met with patient and his mother, Olivia, who was in the room. Patient pleasant, and was able to answer some questions. He resides with his mother, Olivia, and his father here in [place]. He is disabled. He ambulates independently. Mother indicated he has a high pain tolerance, due to his autism, and if his abdominal pain had been so bad that he was rolling on the ground. Patient indicated, he is feeling better, and hoping that he can eat soon. P: DCP to continue to follow. Patient should be able to go home when he is medically stable. Patient's mother indicated that surgeon stated that patient would be here another day to complete IV antibiotics. Maureen Degroot RN/Biomedical Engineering Director
--- NOTE | 2020-06-29 09:42 | PC.NURSE ---
Addendum entered by Chandu Oliver R.N. 06/29/20 14:31: Pt continues to progress. Offers no c/o pain. Surgical site cdi. Mom continues at bedside. Original Note: Pt alert, oriented to situation. Mum attentive at bedside. Pt calm, following directions. 3 lap sites CDI. Pt offers no overt c/o. Asking for help appropriately.
--- NOTE | 2020-06-29 11:19 | P.PN_ITS ---
Subjective Subjective Date Patient Seen: 06/29/20 Time Patient Seen: 11:19 Interval history: No acute overnight events. Tolerating clear liquids no nausea vomiting. No fever wound drainage. Exam Vital Signs (past 8 hours): - 06/29/20 03:20 06/29/20 04:20 06/29/20 09:15 Temperature 97.7 F 98.4 F 98.0 F Pulse Rate 71 67 77 Respiratory Rate 18 18 20 Blood Pressure 94/48 L 101/63 117/84 Pulse Oximetry 95 95 95 Oxygen Delivery Method Room Air Oxygen Flow Rate 0 Narrative Exam Narrative: General adult male alert oriented no acute distress Abdomen soft appropriately tender to palpation. Laparoscopic incisions clean dry intact. Objective Labs Result Diagrams: 06/29/20 05:07 06/28/20 11:15 Labs: Laboratory Results - last 24 hr 06/28/20 06/28/20 06/28/20 11:15 11:15 11:15 WBC 21.2 H RBC 4.88 Hgb 16.5 Hct 47.0 MCV 96.3 MCH 33.8 MCHC 35.1 RDW 12.4 Plt Count 198 Neut % (Auto) 90.7 H Lymph % (Auto) 4.4 L [place] % (Auto) 4.5 Eos % (Auto) 0.0 L Baso % (Auto) 0.4 Neut # (Auto) 40939 H Lymph # (Auto) 900 L [place] # (Auto) 900 Eos # (Auto) 0 Baso # (Auto) 100 PT 13.7 H INR 1.2 APTT 29 Sodium 138 Potassium 4.4 Chloride 104 Carbon Dioxide 26 BUN 22 H Creatinine 0.91 Estimated GFR > 60.0 BUN/Creatinine Ratio 24.2 H Glucose 110 H Lactate Calcium 9.9 Total Bilirubin 1.8 H AST 30 ALT 25 Alkaline Phosphatase 60 Total Protein 8.0 Albumin 4.8 Globulin 3.2 Albumin/Globulin Ratio 1.5 Lipase 82 Procalcitonin Urine Color Urine Appearance Urine pH Ur Specific [place] Urine Protein Urine Glucose (UA) Urine Ketones Urine Occult Blood Urine Nitrate Urine Bilirubin Urine Urobilinogen Ur Leukocyte Esterase Urine RBC Urine WBC Amorphous Sediment Urine Bacteria Ur Culture Indicated? SARS-CoV-2 (PCR) 06/28/20 06/28/20 06/28/20 11:15 11:15 14:10 WBC RBC Hgb Hct MCV MCH MCHC RDW Plt Count Neut % (Auto) Lymph % (Auto) [place] % (Auto) Eos % (Auto) Baso % (Auto) Neut # (Auto) Lymph # (Auto) [place] # (Auto) Eos # (Auto) Baso # (Auto) PT INR APTT Sodium Potassium Chloride Carbon Dioxide BUN Creatinine Estimated GFR BUN/Creatinine Ratio Glucose Lactate 1.2 Calcium Total Bilirubin AST ALT Alkaline Phosphatase Total Protein Albumin Globulin Albumin/Globulin Ratio Lipase Procalcitonin 0.14 Urine Color Yellow Urine Appearance Cloudy Urine pH 5.0 Ur Specific [place] >=1.030 H Urine Protein Trace H Urine Glucose (UA) Negative Urine Ketones Trace H Urine Occult Blood Trace-lysed Urine Nitrate Negative Urine Bilirubin Negative Urine Urobilinogen 0.2 Ur Leukocyte Esterase Negative Urine RBC None seen Urine WBC None seen Amorphous Sediment 2+ Urine Bacteria None seen Ur Culture Indicated? Cult not indicated SARS-CoV-2 (PCR) 06/28/20 06/29/20 15:55 05:07 WBC 11.2 H RBC 4.05 L Hgb 13.5 Hct 39.3 L MCV 97.0 MCH 33.4 MCHC 34.4 RDW 12.6 Plt Count 135 L Neut % (Auto) 94.1 H Lymph % (Auto) 4.0 L [place] % (Auto) 1.8 L Eos % (Auto) 0.0 L Baso % (Auto) 0.1 Neut # (Auto) 20470 H Lymph # (Auto) 400 L [place] # (Auto) 200 Eos # (Auto) 0 Baso # (Auto) 0 PT INR APTT Sodium Potassium Chloride Carbon Dioxide BUN Creatinine Estimated GFR BUN/Creatinine Ratio Glucose Lactate Calcium Total Bilirubin AST ALT Alkaline Phosphatase Total Protein Albumin Globulin Albumin/Globulin Ratio Lipase Procalcitonin Urine Color Urine Appearance Urine pH Ur Specific [place] Urine Protein Urine Glucose (UA) Urine Ketones Urine Occult Blood Urine Nitrate Urine Bilirubin Urine Urobilinogen Ur Leukocyte Esterase Urine RBC Urine WBC Amorphous Sediment Urine Bacteria Ur Culture Indicated? SARS-CoV-2 (PCR) Negative [facility] Social History household members: family and other Smoking Status: Never smoker alcohol intake: never Assessment & Plan Post-op Postoperative Procedures: Procedures Operation Date: 06/28/20 20:45 Actual Procedures Side Surgeon p Laparoscopic Appendectomy Not Applicable Oswaldo Arroyo MD Postoperative plan narrative: 34-year-old male with autism postoperative day 1 status post laparoscopic appendectomy for perforated appendicitis. -regular diet -continue Zosyn 3.375 g Q 6 until tomorrow -SCDs and Lovenox for VT prophylaxis - anticipate discharge home tomorrow on p.o. antibiotic -DC IV fluids
[2020-06-30 05:08] LABS: Add Manual Diff / Slide Review NO; Basophils Absolute Auto 0 /uL (0-100); Basophils Percent Auto 0.3 % (0-2); Eosinophils Absolute Auto 0 /uL (0-450); Eosinophils Percent Auto 0.3 % (2-4); Hematocrit 36.5 % (41-53); Hemoglobin 12.9 g/dL (13.5-17.5); Lymphocytes Absolute Auto 1500 /uL (1100-4500); Lymphocytes Percent Auto 15.6 % (25-40); Mean Corpuscular HGB Conc 35.2 % (30-36); Mean Corpuscular Hemoglobin 34.4 PG (26-34); Mean Corpuscular Volume 97.8 fL (80-100); Monocytes Absolute Auto 900 /uL (0-900); Monocytes Percent Auto 9.1 % (3-14); Neutrophils Absolute Auto 7100 /uL (1500-7000); Neutrophils Percent Auto 74.7 % (50-75); Platelet Count 153 X10^3/uL (150-400); Red Blood Cell Count 3.74 X10^6/uL (4.5-5.9); Red Cell Distribution Width 12.3 % (11.6-14.8); White Blood Cell Count 9.5 X10^3/uL (4.5-11.0)
[2020-06-30] MEDS: PIPERACILLIN-TAZO 3.375 GM/50 ML FROZ.PIGGY IV (05:27)
[2020-06-30 06:26] VITALS: BP 116/78; PULSE 72; RESP 16; TEMP 36.8; O2SAT 96
--- NOTE | 2020-06-30 07:59 | PC.NURSE ---
Addendum entered by Millie Arroyo R.N. 06/30/20 10:23: Patient's mother, Olivia, given discharge instructions regarding f/u appointment, new abx prescriptions, activity and s/s of infections. Pts IV removed, patient tolerated. Patient discharged via [facility]. Original Note: Patient watching movies in bed, mother remains bedside. Reports patient is notably better. Patient is amicable, smiling and talking. BT active x 4, lungs CTA, LR running TKO, denies N/V. Tolerating general diet. Voiding, last BM 06/29. Call light in reach.
[2020-06-30 08:00] VITALS: BP 114/65; PULSE 75; RESP 17; TEMP 36.8; O2SAT 95
[2020-06-30] MEDS: ENOXAPARIN 40 MG/0.4 ML SYRINGE SUBCUT (08:24)
[2020-06-30] MEDS: ACETAMINOPHEN 325 MG TABLET 650 MG PO (08:24)
[2020-06-30] MEDS: GABAPENTIN 300 MG CAPSULE PO (08:24)
--- NOTE | 2020-06-30 10:23 | P.DS_ITS ---
History of Present Illness History of Present Illness Date Patient Seen: 06/30/20 Time Patient Seen: 10:24 Chief complaint: mid abd pain x2 days Narrative: 34-year-old male with autism presented with abdominal pain found to have acute appendicitis Discharge Providers Provider Date of admission: 06/28/20 15:53 Discharge Date: 06/30/20 Primary care physician: Trent Bolaños MD Consults: 06/29/20 01:06 Consult to Discharge Planning Routine Comment: Discharge provider: Guevara Aranda MD Summary Hospital Course Discharge Diagnosis: Perforated appendicitis Hospital Course: Patient underwent a laparoscopic appendectomy which dem onstrated perforated appendicitis. Postoperatively he was maintained on Zosyn. On the date of discharge 06/30 he is afebrile, without leukocytosis, tolerating a regular diet without nausea or vomiting his abdominal pain is well controlled with oral medication. Will discharge home on 1 week of Augmentin. Exam Vital Signs (past 8 hours): - 06/30/20 06:26 06/30/20 08:00 Temperature 98.3 F 98.3 F Pulse Rate 72 75 Respiratory Rate 16 17 Blood Pressure 116/78 114/65 Pulse Oximetry 96 95 Oxygen Delivery Method Room Air Oxygen Flow Rate 0 Narrative Exam Narrative: General adult male alert oriented no acute distress Chest nonlabored respirations, Abdomen soft appropriately tender to palpation laparoscopic port incisions are clean dry intact. Objective Labs Result Diagrams: 06/30/20 04:40 06/28/20 11:15 Labs: Laboratory Results - last 24 hr 06/30/20 04:40 WBC 9.5 RBC 3.74 L Hgb 12.9 L Hct 36.5 L MCV 97.8 MCH 34.4 H MCHC 35.2 RDW 12.3 Plt Count 153 Neut % (Auto) 74.7 Lymph % (Auto) 15.6 L [place] % (Auto) 9.1 Eos % (Auto) 0.3 L Baso % (Auto) 0.3 Neut # (Auto) 7100 H Lymph # (Auto) 1500 [place] # (Auto) 900 Eos # (Auto) 0 Baso # (Auto) 0 PFSH Social History household members: family and other Smoking Status: Never smoker alcohol intake: never Discharge Plan Discharge Plan Patient Disposition: Home Discharge orders & Medications Prescriptions: New amoxicillin-pot clavulanate [Augmentin] 875-125 mg tablet 1 tab PO BID Qty: 14 RF: 0 oxycodone 5 mg tablet 5 mg PO Q8H PRN (Reason: pain) Qty: 30 RF: 0 docusate sodium [Colace] 100 mg capsule 100 mg PO BID Qty: 30 RF: 0 acetaminophen [Tylenol] 325 mg capsule 650 mg PO QID PRN (Reason: pain) Qty: 60 RF: 0 Follow up/Referrals: Trent Bolaños MD [Primary Care Provider] - Oswaldo Arroyo MD [Physician] - 2 Weeks Diet/Activity/Treatments Diet: Regular Activity: No lifting >20 lbs x 4 weeks. Walking only for exercise for 4 weeks[address] while taking narcotics. Skin/Wound/Dressing Care Skin care: Okay to shower. Do not submerge wounds until follow-up Report to your healthcare provider any signs of infection, such as:: chills, fever, increased pain, unusual drainage and unusual redness Visit Report/Discharge Packet Instructions: DI for an Appendectomy Discharge Data Primary Care Provider: Trent Bolaños Attending Provider: Oswaldo Arroyo
== END 2020-06-30 09:50 | disposition home or self-care (01) ==
LOC: ED 15:45 → AC 15:54
PROVIDERS: Admitting Provider Specialist; Emergency Provider Emergency Medicine; PCP Family Medicine; Referring Provider Emergency Medicine; Visit Provider Specialist
PROC: 0DTJ4ZZ Resection of Appendix, Percutaneous Endoscopic Approach (ICD-10-PCS; CPT 44970; principal; 2020-06-28 20:45)
DX: K35.32 Acute appendicitis with perforation, localized peritonitis, and gangrene, without abscess (principal); F84.0 Autistic disorder; Z20.822 Contact with and (suspected) exposure to COVID-19
CPT/HCPCS: 44970; 36415; 74022; 74177; 80053; 81001; 83605; 83690; 84145; 85025; 85610; 85730; 87040; 87070; 87075; 87077; 87186; 87205; 87635; 96361; 96365; 96366; 96372; 96375; 96376; 99219; 99284; C9803; G0378; J1100; J1650; J1885; J2250; J2270; J2405; J2543; J2704; J3010

== ENCOUNTER → 2020-07-12 16:48 | Outpatient (CLI) | payer OTHER, MEDICAID, SELFPAY ==
[2020-07-01 16:28] VITALS: BMI 24.3
[2020-07-12 16:59] LABS: Add Manual Diff / Slide Review NO; Basophils Absolute Auto 100 /uL (0-100); Eosinophils Absolute Auto 100 /uL (0-450); Eosinophils Percent Auto 1.6 % (2-4); Hematocrit 47.8 % (41-53); Hemoglobin 16.1 g/dL (13.5-17.5); Lymphocytes Absolute Auto 2800 /uL (1100-4500); Lymphocytes Percent Auto 29.3 % (25-40); Mean Corpuscular HGB Conc 33.8 % (30-36); Mean Corpuscular Hemoglobin 31.2 PG (26-34); Mean Corpuscular Volume 92.4 fL (80-100); Monocytes Absolute Auto 800 /uL (0-900); Monocytes Percent Auto 8.9 % (3-14); Neutrophils Absolute Auto 5600 /uL (1500-7000); Neutrophils Percent Auto 59.2 % (50-75); Platelet Count 259 X10^3/uL (150-400); Red Blood Cell Count 5.17 X10^6/uL (4.5-5.9); Red Cell Distribution Width 12.4 % (11.6-14.8); White Blood Cell Count 9.5 X10^3/uL (4.5-11.0)
== END ==
PROVIDERS: PCP Family Medicine; Referring Provider Specialist; Visit Provider Specialist
DX: K35.80 Unspecified acute appendicitis (principal)
CPT/HCPCS: 36415; 85025

== ENCOUNTER → 2020-09-17 09:48 | Outpatient (CLI) | payer OTHER, MEDICAID, SELFPAY ==
[2020-07-01 16:28] VITALS: BMI 24.3
[2020-09-17 11:13] LABS: COVID19 -Nasal RAPID Negative (Negative)
== END ==
PROVIDERS: PCP Family Medicine; Visit Provider Specialist
DX: Z20.822 Contact with and (suspected) exposure to COVID-19 (principal)
CPT/HCPCS: 87635; C9803

== ENCOUNTER 2020-09-18 06:43 | Day surgery (SDC) | payer OTHER, MEDICAID, SELFPAY ==
[2020-07-01 16:28] VITALS: BMI 24.3
[2020-09-13 08:02] VITALS: BMI 23.6
[2020-09-18] VITALS (7 sets, daily range): BP systolic 102–112; BP diastolic 67–81; PULSE 65–90; RESP 12–18; TEMP 36.1–36.9; O2SAT 94–99; BMI 23.6
[2020-09-18] MEDS: LACTATED RINGERS 1,000 ML 42 ML IV (07:28)
[2020-09-18] MEDS: ACETAMINOPHEN 325 MG TABLET 975 MG PO (07:28)
--- NOTE | 2020-09-18 07:29 | SUR.OPER ---
Supine on padded OR bed, head on pillow, arms secured on padded arm boards at <90 degrees abduction, legs uncrossed, safety belt at thigh, tape over blanket over lower legs.
--- NOTE | 2020-09-18 07:37 | PM.PREOP ---
Pre-operative Note COVID-19 COVID-19 status: Negative Result date/Date tested (Pos, Neg/Pending): 09/17/20 Interval Note History & Physical reviewed/Exam performed by Physician: Yes Changes to H&P: No
--- NOTE | 2020-09-18 07:44 | P.HP_ITS ---
History of Present Illness History of Present Illness Chief complaint: [facility] Narrative: The patient is a 35-year-old had a recent appendectomy. He was found to have a right inguinal hernia at that time. He is brought in now for repair. He has autism and tolerates pain very well. Very difficult to tell if he is having any symptoms from this. Patient History Medical History Anxiety Autistic disorder OCD (obsessive compulsive disorder) Sensitive skin Tourette's Surgical History History of tonsillectomy and adenoidectomy (05/19/91) Hx of appendectomy (06/28/20) Family & Social History Social History: household members family,other Tobacco & Substance use: Smoking Status Never smoker alcohol intake never Substance Use Type does not use Meds Home Medications and Allergies Allergies Allergy/AdvReac Type Severity Reaction Status Date / Time Sulfa (Sulfonamide Allergy Hives Verified 07/12/20 16:13 Antibiotics) SULFA Allergy Mild FAMILY Uncoded 07/12/20 16:13 HISTORY Review of Systems Review of Systems Narrative: Unable to obtain a good review of systems from the patient. He is otherwise asymptomatic from a long cardiac and GI tract prospective. No history of seizures. Exam Vital Signs (past 8 hours): - 09/18/20 07:15 Temperature 96.9 F L Pulse Rate 65 Respiratory Rate 18 Blood Pressure 102/69 Pulse Oximetry 99 Oxygen Delivery Method Room Air Narrative Exam Narrative: Cooperative fit 35-year-old in no apparent distress. Eyes are nonicteric. Lungs are clear to auscultation. No rales or rhonchi. Heart regular rate and rhythm without murmur gallop. Abdomen is scaphoid soft nontender. No masses. Patient has right inguinal hernia. Reducible. Assessment & Plan Assessment and plan (1) Reducible right inguinal hernia: Status: Acute Assessment & Plan narrative: Patient with a right inguinal hernia for repair. I have discussed the procedure with his mother in his presence. Injury to nerve (which could cause chronic pain or numbness) vas deferens, testicle blood supply, bleeding or infection and recurrence all discussed. She appears to understand wishes that we proceed. I talked to her also about restrictions postop
[2020-09-18] MEDS: CEFAZOLIN 1 GM VIAL 2 GM IV (08:00)
[2020-09-18] MEDS: BUPIVACAINE 0.5% (PF) VIAL 30 ML INJ (08:08)
--- NOTE | 2020-09-18 09:19 | SUR.PHASEI ---
Received to PACU after general anesthesia. Airway patent, self maintained. Report from JADEN Diez and Dr Plaza.
--- NOTE | 2020-09-18 09:23 | P.OP_ITS ---
Operative Date/Time/Diagnoses Date of procedure: 09/18/20 Time of procedure: 09:23 Pre-op diagnosis: Reducible right inguinal hernia Post-op diagnosis: same (Chronic indirect hernia with a direct component as well.) Procedure & Clinicians Procedure: Repair right inguinal hernia with plug and patch technique Same procedure as scheduled: Yes Indications: Patient with a right inguinal hernia. He is autistic and does not express pain. He was brought in for repair. Surgeon: Oswaldo Arroyo Click Yes if Unassisted: Yes Anesthesia Type: General Operative Notes Findings: Direct and indirect components Closure Type: primary Specimen(s): none sent Prosthetic devices, grafts, tissues, transplants, or devices: Mesh (small plug and patch) Estimated Blood Loss (mL): 5 Blood products transfused: none Procedure in detail: The patient was placed supine on the operating room table and underwent general LMA anesthesia. He was prepped and draped in the usual fashion. A transverse incision was made overlying the right internal ring and carried down to the level of the external oblique. The external oblique was opened parallel with its fibers through the external ring. The cord structures were elevated. The cremaster was opened proximally and search made for an indirect sac. One was identified and from the cord structures. It was transected near its distal end and opened and found to have no contents. It was dissected free of the cord structures the level the deep epigastric vessels where it was suture ligated with 2-0 silk suture. Local anesthetic was infiltrated beneath the suture and the sac beyond this suture was transected with cautery and removed. A small plug was placed in the defect created by the hernia and was tacked into place with interrupted Ethibond suture. The crem marco was closed over it with interrupted 3-0 Vicryl.. The floor was examined and was found to be quite attenuated.. A patch was placed across the floor and tacked at the pubic tubercle, the posterior lamella of the anterior rectus sheath, the ilioinguinal ligament, and superior lateral to the cord. The opening was modified as necessary to prevent tight constriction of the cord. Sutures of 0 Tycron were used to secure the mesh. The external oblique was closed with a running 3 0 Vicryl. The subcu was closed with interrupted 3 0 Vicryl. The skin was closed with a running 4 0 Vicryl subcuticular stitch and Steri-Strips. Dressing was applied, the patient was awakened, and the patient was taken to the recovery area in good condition. Complications: none Post-operative Condition: stable Disposition: PACU
--- NOTE | 2020-09-18 10:04 | SUR.PHASEII ---
Pt resting comfortably denies pain or nausea, sitting up in bed drinking juice without problems, mom at bs. All dc instructions given to mom and pt and mother verbalizes understanding. Mother states will bean picker rx on their way home. Pt wanting to rest for a bit longer before trying to stand.
--- NOTE | 2020-09-18 10:52 | SUR.PHASEII ---
1020-Pt up and ambulating gait steady to br and voiding without problems. Dressed now and ready to go. Pt dcd via wc in stable condition with no c/o
== END 2020-09-18 10:29 | disposition home or self-care (01) ==
PROVIDERS: PCP Family Medicine; Referring Provider Specialist; Visit Provider Specialist
PROC: (CPT 49505; principal; 2020-09-18 07:45)
DX: K40.90 Unilateral inguinal hernia, without obstruction or gangrene, not specified as recurrent (principal); F84.0 Autistic disorder; F41.9 Anxiety disorder, unspecified; F42.9 Obsessive-compulsive disorder, unspecified; F95.2 Tourette's disorder
CPT/HCPCS: 49505; C1781; J0690; J1100; J2250; J2405; J2704; J3010

== ENCOUNTER → 2020-12-16 15:43 | Outpatient (CLI) | payer OTHER, MEDICAID, SELFPAY ==
[2020-07-01 16:28] VITALS: BMI 24.3
[2020-12-16 15:59] LABS: Add Manual Diff / Slide Review NO; Basophils Absolute Auto 100 /uL (0-100); Basophils Percent Auto 0.9 % (0-2); Eosinophils Absolute Auto 100 /uL (0-450); Eosinophils Percent Auto 0.9 % (2-4); Hematocrit 47.6 % (41-53); Hemoglobin 16.2 g/dL (13.5-17.5); Lymphocytes Absolute Auto 2100 /uL (1100-4500); Lymphocytes Percent Auto 35.4 % (25-40); Mean Corpuscular Hemoglobin 30.7 PG (26-34); Mean Corpuscular Volume 90.3 fL (80-100); Monocytes Absolute Auto 500 /uL (0-900); Monocytes Percent Auto 8.9 % (3-14); Neutrophils Absolute Auto 3200 /uL (1500-7000); Neutrophils Percent Auto 53.9 % (50-75); Platelet Count 179 X10^3/uL (150-400); Red Blood Cell Count 5.27 X10^6/uL (4.5-5.9)
[2020-12-16 16:17] LABS: Alanine Aminotransferase 25 IU/L (<50); Albumin 4.6 g/dL (3.5-5.0); Albumin Globulin Ratio 1.7 (1.0-2.8); Alkaline Phosphatase 52 U/L (38-126); Aspartate Aminotransferase 39 IU/L (17-59); BUN Creatinine Ratio 26.6 (6-22); Bilirubin Total 1.2 mg/dL (0.2-1.3); Blood Urea Nitrogen 25 mg/dL (9-20); Calcium 9.7 mg/dL (8.4-10.2); Carbon Dioxide 27 mmol/L (22-32); Chloride 106 mmol/L (98-107); Estimated Glomerular Filt Rate > 60.0 mL/min (>60); Globulin 2.7 g/dL (1.7-4.1); Glucose 81 mg/dL (70-100); HEMOLYSIS 28 (0-50); Potassium 3.8 mmol/L (3.4-5.1); Sodium 141 mmol/L (137-145); Total Protein 7.3 g/dL (6.3-8.2)
== END ==
PROVIDERS: PCP Family Medicine; Referring Provider Family Medicine; Visit Provider Family Medicine
DX: F84.0 Autistic disorder (principal); F91.9 Conduct disorder, unspecified
CPT/HCPCS: 36415; 80053; 85025

== ENCOUNTER → 2021-07-30 12:14 | Outpatient (CLI) | payer OTHER, MEDICAID, SELFPAY ==
[2020-07-01 16:28] VITALS: BMI 24.3
--- NOTE | 2021-07-30 | DI.RAD.S_ITS ---
PROCEDURE: XR CHEST 2V INDICATIONS: Abnormal weight loss TECHNIQUE: 2 views of the chest were acquired. COMPARISON: None. FINDINGS: Surgical changes and devices: None. Lungs and pleura: Lungs are clear. No pleural effusions or pneumothorax. Mediastinum: Mediastinal contours are normal. Heart size is normal. Bones and chest wall: No suspicious bony abnormalities. Soft tissues appear unremarkable. IMPRESSION: No acute cardiopulmonary findings. Dictated by: Cari Kahn M.D. on 07/30/2021 at 13:17 Approved by: Cari Kahn M.D. on 07/30/2021 at 13:18
== END ==
PROVIDERS: PCP Family Medicine; Referring Provider Registered Nurse; Visit Provider Registered Nurse
DX: R63.4 Abnormal weight loss (principal)
CPT/HCPCS: 71046

== ENCOUNTER → 2022-02-06 07:26 | Outpatient (CLI) | payer OTHER, MEDICAID, SELFPAY ==
[2020-07-01 16:28] VITALS: BMI 24.3
--- NOTE | 2022-02-06 | DI.CT.S_ITS ---
PROCEDURE: CT ABDOMEN PELVIS W CON INDICATIONS: ABNORMAL WEIGHT LOSS TECHNIQUE: After the administration of oral and IV contrast, axial sections were acquired from the lung bases to the pubic symphysis. Coronal and sagittal reformats were performed. For radiation dose reduction, the following was used: automated exposure control, adjustment of mA and/or kV according to patient size. COMPARISON: [facility], CT, CT ABDOMEN PELVIS WO/W CON, 06/20/2019, 12:50. [facility], CT, CT ABDOMEN PELVIS W CON, 06/28/2020, 14:42. FINDINGS: Image quality: Excellent. Lung bases: Unremarkable. There is concentric thickening of the distal esophagus. Heart: No significant findings. ABDOMEN: Liver: Normal size. Mild hepatic steatosis. Gallbladder: Unremarkable. Biliary ducts: Unremarkable. Pancreas: Unremarkable. Spleen: Unremarkable. Adrenal Glands: Unremarkable. Kidneys and Ureters: Unremarkable. Stomach and Bowel: Stomach, small bowel loops, and colon are normal in caliber. There is mild thickening in the splenic fracture and descending colon. There is a large amount of stool in colon. Peritoneum: No abnormal intraperitoneal fluid. No free air. Ventral Wall: No hernia. Abdominal Nodes: No retroperitoneal or mesenteric adenopathy by size criteria. Vessels: Aorta and inferior vena cava are normal in size. PELVIS: Pelvic Organs: Unremarkable. Bladder: Bladder wall is diffusely thickened. Pelvic Nodes: There is a 1.5 x 1.7 cm hypodense soft tissue nodule just and right groin adjacent to the right external iliac vessels. Previously, the patient had acute appendicitis on 06/28/2020 involving this air. Miscellaneous: No inguinal hernias are seen. Bones: Unremarkable. IMPRESSION: 1. Concentric thickening of the distal esophagus. Differential diagnoses are esophagitis versus chronic gastroesophageal reflux. 2. Mild thickening of the splenic flexure and descending colon suggesting mild segmental colitis. Etiology may be infection or inflammatory bowel disease. Recommend clinical correlation and follow-up. 3. There is mild bladder wall thickening consistent with cystitis. 4. A 1.5 x 1.7 cm hypodense soft tissue nodule in the area just behind the right groin. On the comparison CT dated 06/28/2020, the patient had acute appendicitis with inflammatory stranding extending to this area. The finding could represent a postoperative seroma. An enlarged right external iliac lymph node is a differential diagnosis. Recommend imaging follow-up. 5. A large amount of stool in colon. Dictated by: Kevin Trujillo M.D. on 02/06/2022 at 12:26 Approved by: Kevin Trujillo M.D. on 02/06/2022 at 15:02
== END ==
PROVIDERS: PCP Family Medicine; Referring Provider Registered Nurse; Visit Provider Registered Nurse
DX: R63.4 Abnormal weight loss (principal); K76.0 Fatty (change of) liver, not elsewhere classified
CPT/HCPCS: 74177; Q9967

== ENCOUNTER 2022-08-10 13:14 | Emergency (ER) | payer OTHER, MEDICAID, SELFPAY ==
[2020-07-01 16:28] VITALS: BMI 24.3
[2022-08-10] VITALS (11 sets, daily range): BP systolic 115–134; BP diastolic 71–84; PULSE 60–104; RESP 22; TEMP 37.3; O2SAT 98–100; BMI 21.9
[2022-08-10 13:55] LABS: Add Manual Diff / Slide Review NO; Basophils Absolute Auto 0 /uL (0-100); Basophils Percent Auto 0.5 % (0-2); Eosinophils Absolute Auto 0 /uL (0-450); Eosinophils Percent Auto 0.2 % (2-4); Hematocrit 48.5 % (41-53); Hemoglobin 16.9 g/dL (13.5-17.5); Lymphocytes Absolute Auto 1600 /uL (1100-4500); Lymphocytes Percent Auto 29.9 % (25-40); Mean Corpuscular HGB Conc 34.9 % (30-36); Mean Corpuscular Hemoglobin 32.7 PG (26-34); Mean Corpuscular Volume 93.8 fL (80-100); Monocytes Absolute Auto 500 /uL (0-900); Monocytes Percent Auto 9.3 % (3-14); Neutrophils Absolute Auto 3300 /uL (1500-7000); Neutrophils Percent Auto 60.1 % (50-75); Platelet Count 191 X10^3/uL (150-400); Red Blood Cell Count 5.17 X10^6/uL (4.5-5.9); Red Cell Distribution Width 12.4 % (11.6-14.8); White Blood Cell Count 5.5 X10^3/uL (4.5-11.0)
[2022-08-10 13:58] LABS: Alanine Aminotransferase 36 IU/L (<50); Albumin 5.2 g/dL (3.5-5.0); Albumin Globulin Ratio 1.5 (1.0-2.8); Alkaline Phosphatase 74 U/L (38-126); Aspartate Aminotransferase 43 IU/L (17-59); BUN Creatinine Ratio 26.7 (6-22); Blood Urea Nitrogen 27 mg/dL (9-20); Calcium 10.3 mg/dL (8.4-10.2); Carbon Dioxide 27 mmol/L (22-32); Chloride 106 mmol/L (98-107); Estimated Glomerular Filt Rate > 60 mL/min (>60); Globulin 3.5 g/dL (1.7-4.1); Glucose 100 mg/dL (70-100); HEMOLYSIS 15 (0-50); Lipase 125 U/L (23-300); Potassium 4.2 mmol/L (3.4-5.1); Sodium 143 mmol/L (137-145); Total Protein 8.7 g/dL (6.3-8.2)
--- NOTE | 2022-08-10 14:25 | ED_ITS ---
HPI - Abdominal Pain General Chief Complaint: Abdominal Pain Stated Complaint: intense pain in LT abd Time Seen by Provider: 08/10/22 14:15 Source: patient Mode of arrival: Ambulatory History of Present Illness HPI narrative: Patient brought here by mother from home for complaints of left lower quadrant pain. Patient has history appendectomy 2 years ago. Patient has history autism and is very difficult to express pain or verbalize that he is hurting. He did have bowel movement prior to arrival. However this morning he pointed to his left lower quadrant and continues to do so here. No vomiting. No diarrhea. No black or bloody stools. No urinary complaints. Patient has had a 40 lb unexplained weight loss in the past 9 months and has been followed by Dr. Trent Bolaños with upper GI as well as CT scan imaging. Patient in no distress at this time. His forehead does feel warm to touch. Related Data Previous Rx's Medication Instructions Recorded DISABLED PARKING PERMIT #1 ea 10/29/20 hydroxyzine HCl 25 mg tablet 25 mg PO BEDTIME #30 tabs 01/09/21 Allergies Allergy/AdvReac Type Severity Reaction Status Date / Time Sulfa (Sulfonamide Allergy Hives Verified 08/10/22 13:39 Antibiotics) SULFA Allergy Mild FAMILY Uncoded 12/12/20 10:42 HISTORY Review of Systems Review of Systems Narrative: GENERAL: negative chills, fatigue, malaise, fever, sweats. HEENT: negative sinus pain, ear pain, sore throat RESPIRATORY: negative dyspnea, cough CARDIOVASCULAR: negative chest pain, palpitations GASTROINTESTINAL: negative nausea, vomiting, positive abdominal pain : negative dysuria, frequency, hematuria MUSCULOSKELETAL: negative muscle or bony pain SKIN: negative rash, skin lesions NEUROLOGIC: negative weakness, numbness ROS Unobtainable: All systems reviewed & are unremarkable except as noted in HPI and below Patient History Medical History Anxiety Autistic disorder OCD (obsessive compulsive disorder) Sensitive skin Tourette's Surgical History History of tonsillectomy and adenoidectomy (05/19/91) Hx of appendectomy (06/28/20) Social History household members: family and other Smoking Status: Never smoker alcohol intake: never Smoking Status: Never smoker Substance Use Type: does not use Exam Narrative Exam Narrative: GENERAL: in no distress, not toxic not dyspneic HEAD: Normocephalic. EYES: Pupils equal round ENT: Mucous membranes moist. NECK: Trachea midline. CARDIOVASCULAR: Regular rate and rhythm without murmurs RESPIRATORY: Clear to auscultation. Breath sounds equal bilaterally. No wheezes, rales, or rhonchi. GASTROINTESTINAL: Abdomen soft, and flat, however reproducible left lower quadrant tenderness. No pain out of proportion to exam. No rebound tenderness. Bowel sounds are present EXTREMITIES: No gross deformities. BACK: No flank tenderness. NEURO: AOx4. SKIN: Warm and dry PSYCH: Not anxious, is cooperative Initial Vital Signs Initial Vital Signs: Vital Signs Pulse Rate 69 08/10/22 13:35 Pulse Oximetry 100 08/10/22 13:35 Course Orders Ordered: Discontinued Medications Acetaminophen (Acetaminophen 325 Mg Tablet) 975 mg PO NOW ONE Stop: 08/10/22 14:25 Last Admin: 08/10/22 14:58 Dose: 975 mg Documented By: BREA Sodium Chloride (Normal Saline 0.9%) 1,000 mls @ 1,000 mls/hr IV BOLUS ONE Stop: 08/10/22 15:23 Last Infusion: 08/10/22 16:39 Dose: 0 mls/hr Documented By: Admin: 08/10/22 14:58 Dose: 1,000 mls/hr Documented By: BREA Morphine Sulfate (Morphine 4 Mg/Ml Inj) 4 mg IV NOW ONE Stop: 08/10/22 14:25 Last Admin: 08/10/22 14:45 Dose: 4 mg Documented By: SANDY Ondansetron HCl (Ondansetron 4 Mg/2 Ml Inj) 4 mg IV NOW PRN PRN Reason: Nausea And Vomiting Ondansetron HCl (Ondansetron 4 Mg Odt) 4 mg PO NOW PRN PRN Reason: Nausea And Vomiting Vital Signs Vital signs: Vital Signs - 8 hr 08/10/22 13:39 08/10/22 14:20 08/10/22 13:35 Temperature 99.2 F Pulse Rate 60 69 Respiratory Rate 22 Blood Pressure 128/84 Pulse Oximetry 100 100 Oxygen Delivery Method Room Air 08/10/22 14:00 08/10/22 14:00 08/10/22 14:30 Temperature Pulse Rate 67 69 Respiratory Rate Blood Pressure 115/83 Pulse Oximetry 100 99 Oxygen Delivery Method 08/10/22 15:00 08/10/22 15:02 08/10/22 15:02 Temperature Pulse Rate 104 H 74 Respiratory Rate Blood Pressure 134/83 Pulse Oximetry 100 100 Oxygen Delivery Method MDM - Abdominal Pain Lab Data 08/10/22 13:33 08/10/22 13:33 Labs: Lab Results 08/10/22 08/10/22 Range/Units 13:33 13:33 WBC 5.5 (4.5-11.0) X10^3/uL RBC 5.17 (4.5-5.9) X10^6/uL Hgb 16.9 (13.5-17.5) g/dL Hct 48.5 (41-53) % MCV 93.8 (80-100) fL MCH 32.7 (26-34) PG MCHC 34.9 (30-36) % RDW 12.4 (11.6-14.8) % Plt Count 191 (150-400) X10^3/uL Neut % (Auto) 60.1 (50-75) % Lymph % (Auto) 29.9 (25-40) % [place] % (Auto) 9.3 (3-14) % Eos % (Auto) 0.2 L (2-4) % Baso % (Auto) 0.5 (0-2) % Neut # (Auto) 3300 (9323-0059) /uL Lymph # (Auto) 1600 (5423-3733) /uL [place] # (Auto) 500 (0-900) /uL Eos # (Auto) 0 (0-450) /uL Baso # (Auto) 0 (0-100) /uL Sodium 143 (137-145) mmol/L Potassium 4.2 (3.4-5.1) mmol/L Chloride 106 (98-107) mmol/L Carbon Dioxide 27 (22-32) mmol/L BUN 27 H (9-20) mg/dL Creatinine 1.01 (0.66-1.25) mg/dL Estimated GFR > 60 (>60) mL/min BUN/Creatinine Ratio 26.7 H (6-22) Glucose 100 (70-100) mg/dL Calcium 10.3 H (8.4-10.2) mg/dL Total Bilirubin 2.0 H (0.2-1.3) mg/dL AST 43 (17-59) IU/L ALT 36 (<50) IU/L Alkaline Phosphatase 74 (38-126) U/L Total Protein 8.7 H (6.3-8.2) g/dL Albumin 5.2 H (3.5-5.0) g/dL Globulin 3.5 (1.7-4.1) g/dL Albumin/Globulin Ratio 1.5 (1.0-2.8) Lipase 125 (23-300) U/L Point of care testing: Urine Dip Bedside Urine Glucose Negative Bedside Urine Bilirubin - Negative Bedside Urine Ketone ++ 40 Urine Specific [place] 1.01 Bedside Urine Occult Blood - Negative Bedside Urine pH 8.5 Bedside Urine Protein - Negative Bedside Urine Urobilinogen - Negative Bedside Urine Nitrite - Negative Bedside Urine Leukocytes - Negative Esterase Imaging Data CT scan - abdomen/pelvis: Radiologist's Impression: [address] [address] [address] Scan Report Signed Patient: Eleuterio Orozco MR#: [id number] : 1985 Acct:[id number] Age/Sex: 37 / M Date of Service: 08/10/22 Loc: ED Accession Number: [id number] ?? Procedure: CT abdomen pelvis w con Ordering Provider: Grzegorz Chen MD PROCEDURE:? CT ABDOMEN PELVIS W CON ? INDICATIONS:? IV contrast only/left lower quadrant pain ? TECHNIQUE:? After the administration of intravenous contrast, axial sections acquired from the lung bases to the pubic symphysis.? Coronal and sagittal reformats were performed.? For radiation dose reduction, the following was used:? automated exposure control, adjustment of mA and/or kV according to patient size.? ? COMPARISON:? [facility], CT, CT ABDOMEN PELVIS W CON, 02/06/2022, 9:21. ? FINDINGS:? Image quality:? Excellent.? ? Lung bases:? Unremarkable. Heart:? No significant findings. ? ABDOMEN: Liver:? Unremarkable.? ? Gallbladder:? Unremarkable without calcified gallstones.? ? Biliary ducts:? Unremarkable.? ? Pancreas:? Unremarkable.? ? Spleen:? Unremarkable.? ? Adrenal Glands:? Unremarkable.? ? Kidneys and Ureters:? Unremarkable.? ? ? Stomach and Bowel:? Stomach, small bowel loops, and colon are unremarkable.? Moderate fecal load. Peritoneum:? No abnormal intraperitoneal fluid.? No free air.? ? Ventral Wall: ? No hernias.? Abdominal Nodes:? No retroperitoneal or mesenteric adenopathy by size criteria.? Vessels:? Aorta and inferior vena cava are normal in size.? ? PELVIS: Pelvic Organs:? Unremarkable.? ? Bladder:? Unremarkable.? ? Pelvic Nodes: No enlarged lymph nodes.? Miscellaneous: No hernias are seen. ? ? ? Bones:? Unremarkable.? IMPRESSION:? ? 1. Moderate fecal load. ? 2. No evidence of acute diverticulitis or other findings which explain left lower quadrant pain.? No evidence of acute abdominal process. ? ? Dictated by: Darrin Chacon M.D. on 08/10/2022 at 15:46 ? ? Approved by: Darrin Chacon M.D. on 08/10/2022 at 15:52 ? [facility] Narrative Medical decision making narrative: Patient brought here by mother from home for complaints of left lower quadrant pain. Patient has history appendectomy 2 years ago. Patient has history autism and is very difficult to express pain or verbalize that he is hurting. He did have bowel movement prior to arrival. However this morning he pointed to his left lower quadrant and continues to do so here. No vomiting. No diarrhea. No black or bloody stools. No urinary complaints. Patient has had a 40 lb unexplained weight loss in the past 9 months and has been followed by Dr. Trent Bolaños with upper GI as well as CT scan imaging. Patient in no distress at this time. His forehead does feel warm to touch. After history and exam CBC CMP urinalysis morphine Zofran normal saline CT abdomen pelvis [facility] CC: Left lower quadrant abdominal pain Complicating co-morbidities: Autism Data collected from: Patient and mother Medical records reviewed: No recent visits for this complaint Differential considered: Includes but not limited to diverticulitis renal stone ureteral stone bowel obstruction UTI pyelonephritis colitis Exam documented above, pertinent findings include: Tender left foot or quadrant Lab Test results independently reviewed as above. Pertinent findings: WBC 5.5 hemoglobin 16.9 hematocrit 48.5 sodium 143 potassium 4.2 bicarb 27 BUN 27 creatinine 1.01 GFR greater than 60 Independently reviewed EKG normal sinus rhythm rate [address] elevation or depression, normal EKG Imaging studies independently reviewed: CT abdomen pelvis no acute process but moderate fecal load. Consultations: None indicated this time Treatments: Morphine Zofran normal saline Re-evaluations: 4:50 p.m... Reviewed results with mother. At this time laboratory studies imaging are reassuring. Patient is pain-free at this time. Patient is on stool softeners at home. However pain need to try some [id number] laxatives to promote stool movement. She agrees with this p jasvir. Home observation she agrees with that as well. Return precautions reviewed with her. Pain may be due to constipation. She desires discharge home Discussion: Appropriate for discharge home. Exam and laboratory studies and imaging are reassuring. Mother is comfortable with observation home and try to promote bowel movement with [id number]-[id number] laxative. Return precautions reviewed with her. Patient pain-free at this time not toxic. She desires discharge home. They will follow up with primary care within a week. Diagnosis: Abdominal pain Discharge Plan Departure Patient Disposition: Home Clinical Impression: Abdominal pain Instructions: DI for Abdominal Pain-Adult, DI for Constipation Activity Restrictions/Additional Instructions: Keep well hydrated. See family doctor within a week for re-evaluation. May take gutj-nxv-heroefo oral laxatives to help promote bowel movements. Return if worse if any questions or concerns. Prescriptions: No Action (DME) DISABLED PARKING PERMIT See Rx Instructions .ROUTE .MEDSUPPLY Qty: 1 0RF Rx Instructions: I find this patient to be medically disabled and qualified for disabled parking as indicated, and signed, on the accompanying Disabled Parking Application for Individuals. hydroxyzine HCl 25 mg tablet 25 mg PO BEDTIME Qty: 30 5RF Referrals: Trent Bolaños MD [Primary Care Provider] - Stand Alone Forms: Patient Portal/API
--- NOTE | 2022-08-10 14:32 | DI.CT.S_ITS ---
PROCEDURE: CT ABDOMEN PELVIS W CON INDICATIONS: IV contrast only/left lower quadrant pain TECHNIQUE: After the administration of intravenous contrast, axial sections acquired from the lung bases to the pubic symphysis. Coronal and sagittal reformats were performed. For radiation dose reduction, the following was used: automated exposure control, adjustment of mA and/or kV according to patient size. COMPARISON: [facility], CT, CT ABDOMEN PELVIS W CON, 02/06/2022, 9:21. FINDINGS: Image quality: Excellent. Lung bases: Unremarkable. Heart: No significant findings. ABDOMEN: Liver: Unremarkable. Gallbladder: Unremarkable without calcified gallstones. Biliary ducts: Unremarkable. Pancreas: Unremarkable. Spleen: Unremarkable. Adrenal Glands: Unremarkable. Kidneys and Ureters: Unremarkable. Stomach and Bowel: Stomach, small bowel loops, and colon are unremarkable. Moderate fecal load. Peritoneum: No abnormal intraperitoneal fluid. No free air. Ventral Wall: No hernias. Abdominal Nodes: No retroperitoneal or mesenteric adenopathy by size criteria. Vessels: Aorta and inferior vena cava are normal in size. PELVIS: Pelvic Organs: Unremarkable. Bladder: Unremarkable. Pelvic Nodes: No enlarged lymph nodes. Miscellaneous: No hernias are seen. Bones: Unremarkable. IMPRESSION: 1. Moderate fecal load. 2. No evidence of acute diverticulitis or other findings which explain left lower quadrant pain. No evidence of acute abdominal process. Dictated by: Darrin Chacon M.D. on 08/10/2022 at 15:46 Approved by: Darrin Chacon M.D. on 08/10/2022 at 15:52
[2022-08-10] MEDS: MORPHINE 4 MG/ML INJ IV (14:45)
[2022-08-10] MEDS: SODIUM CHLORIDE 0.9% 1,000 ML 1000 ML IV (14:58)
[2022-08-10] MEDS: ACETAMINOPHEN 325 MG TABLET 975 MG PO (14:58)
== END 2022-08-10 17:00 | disposition home or self-care (01) ==
PROVIDERS: Emergency Provider Emergency Medicine; PCP Family Medicine
DX: R10.32 Left lower quadrant pain (principal); F84.0 Autistic disorder; K59.00 Constipation, unspecified
CPT/HCPCS: 36415; 74177; 80053; 81003; 83690; 85025; 93005; 93010; 96361; 96374; 99284; J2270; Q9967

== ENCOUNTER → 2023-01-26 11:32 | Outpatient (CLI) | payer OTHER, MEDICAID, SELFPAY ==
[2020-07-01 16:28] VITALS: BMI 24.3
[2023-01-26 12:44] LABS: Influenza A - CEPHEID Flu A NEGATIVE (NEGATIVE); Influenza B - CEPHEID Flu B NEGATIVE (NEGATIVE); Respiratory Syncytial Virus Negative (Negative)
[2023-01-26 13:09] LABS: COVID-19 CEPHEID 4-PLEX PCR Negative (Negative)
== END ==
PROVIDERS: PCP Family Medicine; Visit Provider Physician Assistant
DX: R50.9 Fever, unspecified (principal); R05.1 Acute cough; J02.9 Acute pharyngitis, unspecified
CPT/HCPCS: 0241U; 87070; 87880

== ENCOUNTER 2023-06-07 15:07 | Emergency (ER) | payer OTHER, MEDICAID, SELFPAY ==
[2020-07-01 16:28] VITALS: BMI 24.3
[2023-06-07] VITALS (7 sets, daily range): BP systolic 102–115; BP diastolic 71–79; PULSE 72–94; RESP 20; TEMP 36.9; O2SAT 97–100; BMI 20.9
[2023-06-07 15:53] LABS: Add Manual Diff / Slide Review NO; Basophils Absolute Auto 0 /uL (0-100); Basophils Percent Auto 0.6 % (0-2); Eosinophils Absolute Auto 100 /uL (0-450); Eosinophils Percent Auto 0.7 % (2-4); Hematocrit 47.5 % (41-53); Hemoglobin 16.3 g/dL (13.5-17.5); Lymphocytes Absolute Auto 1600 /uL (1100-4500); Lymphocytes Percent Auto 22.2 % (25-40); Mean Corpuscular HGB Conc 34.2 % (30-36); Mean Corpuscular Hemoglobin 31.2 PG (26-34); Mean Corpuscular Volume 91.2 fL (80-100); Monocytes Absolute Auto 600 /uL (0-900); Monocytes Percent Auto 8.1 % (3-14); Neutrophils Absolute Auto 5100 /uL (1500-7000); Neutrophils Percent Auto 68.4 % (50-75); Platelet Count 177 X10^3/uL (150-400); Red Blood Cell Count 5.21 X10^6/uL (4.5-5.9); Red Cell Distribution Width 12.8 % (11.6-14.8); White Blood Cell Count 7.4 X10^3/uL (4.5-11.0)
[2023-06-07 16:09] LABS: Alanine Aminotransferase 26 IU/L (<50); Albumin 4.5 g/dL (3.5-5.0); Albumin Globulin Ratio 1.6 (1.0-2.8); Alkaline Phosphatase 44 U/L (38-126); Aspartate Aminotransferase 41 IU/L (17-59); BUN Creatinine Ratio 24.2 (6-22); Bilirubin Total 1.3 mg/dL (0.2-1.3); Blood Urea Nitrogen 23 mg/dL (9-20); Calcium 9.1 mg/dL (8.4-10.2); Carbon Dioxide 22 mmol/L (22-32); Chloride 107 mmol/L (98-107); Estimated Glomerular Filt Rate > 60 mL/min (>60); Globulin 2.9 g/dL (1.7-4.1); Glucose 91 mg/dL (70-100); Lipase 153 U/L (23-300); Sodium 138 mmol/L (137-145); Total Protein 7.4 g/dL (6.3-8.2)
[2023-06-07 16:10] LABS: HEMOLYSIS 53 (0-50)
--- NOTE | 2023-06-07 16:47 | DI.CT.S_ITS ---
PROCEDURE: CT ABDOMEN PELVIS W CON INDICATIONS: abd pain TECHNIQUE: After the administration of intravenous contrast, axial sections acquired from the lung bases to the pubic symphysis. Coronal and sagittal reformats were performed. For radiation dose reduction, the following was used: automated exposure control, adjustment of mA and/or kV according to patient size. COMPARISON: [facility], CT, CT ABDOMEN PELVIS W CON, 02/06/2022, 9:21. [facility], CT, CT ABDOMEN PELVIS W CON, 08/10/2022, 14:54. FINDINGS: Image quality: Diagnostic. Lower Chest: No significant findings. ABDOMEN: Liver: No solid mass. Gallbladder: Contracted. No radiopaque gallstones. Biliary ducts: No biliary dilation. Pancreas: No ductal dilation. Spleen: Size is within normal limits. Adrenal Glands: No adrenal nodules. Kidneys and Ureters: No hydronephrosis. No solid mass. No complex renal cystic lesion which requires follow up. Stomach and Bowel: Normal bowel caliber. There may be mild mild diffuse colonic wall thickening involving the transverse colon but transverse colon is not fully distended. Appendix is not identified. Peritoneum: No abnormal intraperitoneal fluid. No free air. Ventral Wall: No significant ventral hernia. Abdominal Nodes: No retroperitoneal or mesenteric adenopathy by size criteria. Vessels: Aorta and inferior vena cava are normal in size. PELVIS: Pelvic Organs: Unremarkable. Bladder: Mild bladder wall thickening, accounting for underdistention. Pelvic Nodes: No enlarged lymph nodes. Miscellaneous: No inguinal hernias are seen. Again noted is a 1.5 x 2.0 cm cystic structure behind the right inguinal canal, probably a small seroma. It is not significant changed from the last exam. Bones: No aggressive osseous abnormality. IMPRESSION: 1. Question mild bladder wall thickening. Please correlate with urinalysis. 2. Mild diffuse thickening of transverse colon may be secondary to inadequate distention. Dictated by: Kevin Trujillo M.D. on 06/07/2023 at 17:06 Approved by: Kevin Trujillo M.D. on 06/07/2023 at 17:13
[2023-06-07 17:38] LABS: Bacteria Urine Occasional (0-1); RBC Urine 0-1/HPF (0-5/HPF); Squamous Epithelial Cell Urine 5-10 /HPF (0-5/HPF); Urine Volume 10mL (spun); WBC Urine 1-5/HPF (0-5/HPF)
[2023-06-07 17:39] LABS: Culture Indicated Urine Cult Not Indicated; Mucus Urine 2+ (Negative)
--- NOTE | 2023-06-07 18:10 | ED_ITS ---
HPI - Abdominal Pain General Chief Complaint: Abdominal Pain Stated Complaint: ABD Pain Time Seen by Provider: 06/07/23 17:09 Source: family Mode of arrival: Ambulatory History of Present Illness HPI narrative: 37-year-old male with history mostly nonverbal autism spectrum presents by private vehicle from home for abdominal pain. History is obtained from his mother at bedside. Mother states that patient does not normally complain of pain due to his nonverbal status, however he lately has been pointing to his belly button area and making a ?squeaking? noise that indicates he has discomfort. She states that the last time he did something like this he ended up having a ruptured appendix. Patient has been eating and drinking normally, however out of precaution she brought him in for evaluation. Has been giving MiraLax at home for constipation. Related Data Previous Rx's Medication Instructions Recorded hydroxyzine HCl 25 mg tablet 25 mg PO BEDTIME #30 tabs 01/09/21 DISABLED PARKING PERMIT #1 ea 05/25/23 Allergies Allergy/AdvReac Type Severity Reaction Status Date / Time Sulfa (Sulfonamide Allergy Hives Verified 01/26/23 11:30 Antibiotics) SULFA Allergy Mild FAMILY Uncoded 01/26/23 11:30 HISTORY Review of Systems Review of Systems Narrative: Per HPI Patient History Medical History Anxiety Sensitive skin Tourette's OCD (obsessive compulsive disorder) Autistic disorder Surgical History History of tonsillectomy and adenoidectomy (05/19/91) Hx of appendectomy (06/28/20) Social History household members: family and other Smoking Status: Never smoker alcohol intake: never Smoking Status: Never smoker alcohol intake frequency: 0-2 drinks per day Substance Use Type: does not use Exam Initial Vital Signs Initial Vital Signs: Vital Signs Temperature 98.4 F 06/07/23 15:20 Pulse Rate 94 H 06/07/23 15:20 Respiratory Rate 20 06/07/23 15:20 Blood Pressure 102/71 06/07/23 15:20 Pulse Oximetry 100 06/07/23 15:20 Oxygen Delivery Method Room Air 06/07/23 15:20 Const: Awake, alert, no acute distress, nontoxic appearing, watching videos on iPhone Cardiac: regular rate, regular rhythm RESP: unlabored, clear bilaterally, no wheezing GI: Soft, nontender, nondistended, no rebound, no guarding MSK: Atraumatic, full range of motion, pulses equal Skin: Warm, Dry, intact, no rashes Neuro: at baseline per mother, CN II-XII grossly intact, moves all extremities Course Orders Ordered: Discontinued Medications Ondansetron HCl (Ondansetron 4 Mg Odt) 4 mg PO NOW PRN PRN Reason: Nausea And Vomiting Ondansetron HCl (Ondansetron 4 Mg/2 Ml Inj) 4 mg IV NOW PRN PRN Reason: Nausea And Vomiting Vital Signs Vital signs: Vital Signs - 8 hr 06/07/23 15:20 06/07/23 16:02 06/07/23 16:02 Temperature 98.4 F Pulse Rate 94 H 83 Respiratory Rate 20 Blood Pressure 102/71 113/76 Pulse Oximetry 100 100 Oxygen Delivery Method Room Air 06/07/23 16:30 06/07/23 17:02 06/07/23 17:29 Temperature Pulse Rate 88 78 75 Respiratory Rate Blood Pressure Pulse Oximetry 100 97 100 Oxygen Delivery Method Room Air 06/07/23 17:29 06/07/23 17:30 06/07/23 18:00 Temperature Pulse Rate 82 72 Respiratory Rate Blood Pressure 115/79 Pulse Oximetry 100 100 Oxygen Delivery Method Room Air MDM - Abdominal Pain Differential Diagnosis Differential diagnosis: Likely abdominal pain, acute appendicitis and calculus of kidney Lab Data 06/07/23 15:44 06/07/23 15:44 Labs: Lab Results 06/07/23 06/07/23 Range/Units 15:44 17:15 WBC 7.4 (4.5-11.0) X10^3/uL RBC 5.21 (4.5-5.9) X10^6/uL Hgb 16.3 (13.5-17.5) g/dL Hct 47.5 (41-53) % MCV 91.2 (80-100) fL MCH 31.2 (26-34) PG MCHC 34.2 (30-36) % RDW 12.8 (11.6-14.8) % Plt Count 177 (150-400) X10^3/uL Neut % (Auto) 68.4 (50-75) % Lymph % (Auto) 22.2 L (25-40) % Crosby % (Auto) 8.1 (3-14) % Eos % (Auto) 0.7 L (2-4) % Baso % (Auto) 0.6 (0-2) % Neut # (Auto) 5100 (3484-6560) /uL Lymph # (Auto) 1600 (3834-2291) /uL Crosby # (Auto) 600 (0-900) /uL Eos # (Auto) 100 (0-450) /uL Baso # (Auto) 0 (0-100) /uL Sodium 138 (137-145) mmol/L Potassium 4.0 (3.4-5.1) mmol/L Chloride 107 (98-107) mmol/L Carbon Dioxide 22 (22-32) mmol/L BUN 23 H (9-20) mg/dL Creatinine 0.95 (0.66-1.25) mg/dL Estimated GFR > 60 (>60) mL/min BUN/Creatinine Ratio 24.2 H (6-22) Glucose 91 (70-100) mg/dL Calcium 9.1 (8.4-10.2) mg/dL Total Bilirubin 1.3 (0.2-1.3) mg/dL AST 41 (17-59) IU/L ALT 26 (<50) IU/L Alkaline Phosphatase 44 (38-126) U/L Total Protein 7.4 (6.3-8.2) g/dL Albumin 4.5 (3.5-5.0) g/dL Globulin 2.9 (1.7-4.1) g/dL Albumin/Globulin Ratio 1.6 (1.0-2.8) Lipase 153 (23-300) U/L Urine RBC 0-1/hpf (0-5/HPF) Urine WBC 1-5/hpf (0-5/HPF) Ur Squamous Epith Cells 5-10 /hpf H (0-5/HPF) Urine Bacteria Occasional (0-1) (None) Urine Mucus 2+ H (Negative) Ur Culture Indicated? Cult not indicated Vol Urine Centrifuged 10ml (spun) Point of care testing: Urine Dip Bedside Urine Glucose Negative Bedside Urine Bilirubin - Negative Bedside Urine Ketone +/- 5 Urine Specific [place] 1.030 Bedside Urine Occult Blood - Negative Bedside Urine pH 5.5 Bedside Urine Protein +/- 15 Bedside Urine Urobilinogen - Negative Bedside Urine Nitrite - Negative Bedside Urine Leukocytes - Negative Esterase Imaging Data CT scan - abdomen/pelvis: Radiologist's Impression: PROCEDURE: CT ABDOMEN PELVIS W CON INDICATIONS: abd pain TECHNIQUE: After the administration of intravenous contrast, axial sections acquired from the lung bases to the pubic symphysis. Coronal and sagittal reformats were performed. For radiation dose reduction, the following was used: automated exposure control, adjustment of mA and/or kV according to patient size. COMPARISON: [facility], CT, CT ABDOMEN PELVIS W CON, 02/06/2022, 9:21. [facility], CT, CT ABDOMEN PELVIS W CON, 08/10/2022, 14:54. FINDINGS: Image quality: Diagnostic. Lower Chest: No significant findings. ABDOMEN: Liver: No solid mass. Gallbladder: Contracted. No radiopaque gallstones. Biliary ducts: No biliary dilation. Pancreas: No ductal dilation. Spleen: Size is within normal limits. Adrenal Glands: No adrenal nodules. Kidneys and Ureters: No hydronephrosis. No solid mass. No complex renal cystic lesion which requires follow up. Stomach and Bowel: Normal bowel caliber. There may be mild mild diffuse colonic wall thickening involving the transverse colon but transverse colon is not fully distended. Appendix is not identified. Peritoneum: No abnormal intraperitoneal fluid. No free air. Ventral Wall: No significant ventral hernia. Abdominal Nodes: No retroperitoneal or mesenteric adenopathy by size criteria. Vessels: Aorta and inferior vena cava are normal in size. PELVIS: Pelvic Organs: Unremarkable. Bladder: Mild bladder wall thickening, accounting for underdistention. Pelvic Nodes: No enlarged lymph nodes. Miscellaneous: No inguinal hernias are seen. Again noted is a 1.5 x 2.0 cm cystic structure behind the right inguinal canal, probably a small seroma. It is not significant changed from the last exam. Bones: No aggressive osseous abnormality. IMPRESSION: 1. Question mild bladder wall thickening. Please correlate with urinalysis. 2. Mild diffuse thickening of transverse colon may be secondary to inadequate distention. Dictated by: Kevin Trujillo M.D. on 06/07/2023 at 17:06 Approved by: Kevin Trujillo M.D. on 06/07/2023 at 17:13 MDM Narrative Medical decision making narrative: Well-appearing patient with possible abdominal pain. Abdomen is soft, patient does not grimace or show any other obvious signs of discomfort when abdomen is palpated. Laboratory work shows no leukocytosis, electrolytes are within normal limits, liver enzymes are normal. CT scan of the abdomen and pelvis is reviewed, there was questionable bladder wall thickening, however urinalysis shows no evidence of infection. Transverse colon noted to have ?mild diffuse thickening ?, however abdomen is soft, there was no leukocytosis, believe this to be under distention rather than a colitis type process. Mother informed of all lab and imaging findings, she was relieved to know that the scan does not show anything surgical or dangerous. She will continue to give MiraLax at home as a stool softener and we will follow up with the patient's primary care doctor Discharge Plan Departure Patient Disposition: Home Clinical Impression: Abdominal pain Qualifiers: Abdominal location: periumbilical Qualified Code(s): R10.33 - Periumbilical pain Instructions: DI for Abdominal Pain-Adult Activity Restrictions/Additional Instructions: Your labs and CT today were normal. I do not know the cause for your abdominal pain. Follow up with your primary care physician. Prescriptions: No Action hydroxyzine HCl 25 mg tablet 25 mg PO BEDTIME Qty: 30 5RF (DME) DISABLED PARKING PERMIT See Rx Instructions .ROUTE .MEDSUPPLY Qty: 1 0RF Rx Instructions: I find this patient to be medically disabled and qualified for disabled parking as indicated, and signed, on the accompanying Disabled Parking Application for Individuals. Referrals: Trent Bolaños MD [Primary Care Provider] - Stand Alone Forms: Patient Portal/API
== END 2023-06-07 18:35 | disposition home or self-care (01) ==
PROVIDERS: Emergency Provider Emergency Medicine; PCP Family Medicine
DX: R10.33 Periumbilical pain (principal); N39.0 Urinary tract infection, site not specified; B95.4 Other streptococcus as the cause of diseases classified elsewhere
CPT/HCPCS: 36415; 74177; 80053; 81003; 81015; 83690; 85025; 87086; 87147; 99283; 99284; Q9967

== ENCOUNTER → 2023-06-28 16:36 | Outpatient (CLI) | payer OTHER, MEDICAID, SELFPAY ==
[2020-07-01 16:28] VITALS: BMI 24.3
[2023-06-28 19:08] LABS: TSH w/ Reflex to FT4 0.69 uIU/mL (0.47-4.68)
== END ==
PROVIDERS: PCP Family Medicine; Referring Provider Family Medicine; Visit Provider Family Medicine
DX: E46 Unspecified protein-calorie malnutrition (principal); R63.4 Abnormal weight loss
CPT/HCPCS: 36415; 84443